=== PATIENT | female | born 1980 | race Caucasian/White ===

== ENCOUNTER 2017-05-30 20:47 | Emergency (ER) | payer MEDICAID ==
[~2017-05-30] VITALS: Ht 167.6 cm; Wt 61.2 kg
[2017-05-30 21:10] VITALS: BP 134/82
--- NOTE | 2017-05-30 21:13 | Urgent Treatment Center Report ---
History of Present Issue Date/Time Seen by Provider 05/30/172105 Visit Reason Pt arrived:Walked Presenting Problem:PT FELL WHILE ROLLER SKATING AND INJURED HER RIGHT WRIST Location if Accident: Onset of symptoms date/time:/ or onset unknown for:MEDICAL HX UNKNOWN Have you (or family members/close friends) recently traveled outside the [place]? N If Yes, where/when: Have you had exposure to infectious disease within the past month? TB? Other? Specify: Patient state that she was roller skating at a birthday green party earlier tonight when she lost her balance and fell landing on her right wirst. Complains of pain and swelling in the bend of her wrist with large "knot" States that she came in to get checked because when she first fell wrist looked odd ALLERGIES Coded Allergies: No Known Allergies (05/30/17) Home Medications Active Scripts HYDROCODONE/ACETAMINOPHEN (Lortab 5-325 MG Tablet) 1 TAB PO Q6HP PRN pain #10 TAB Prov: 03/12/14 Minocycline Hcl (Minocycline 100MG. Capsule) 100 MG PO BID #20 CAP Prov: 08/23/16 HYDROCODONE/ACETAMINOPHEN ([place] 5-325 Tablet) 1 TAB PO Q6HP PRN pain #12 TAB Prov: 08/23/16 Ondansetron (Zofran 4MG Odt) 4 MG PO Q6HP PRN NAUSEA AND VOMITING #20 ODT Prov: 02/28/17 Reported Medications No Home Medications (NO HOME MEDICATIONS) 1 EACH XX ONCE History Medical History General CAD? No Angina: No GA: No Hypertension? No Hyperlipidemia? No CHF? No DVT? No PE? No COPD? No Asthma? No Anemia? No GERD? No Gastric ulcers? No GI Bleed? No Hernia? No Thyroid Problems? No Hypothyroidism? No CVA? No Seizures? No Diabetes? No Renal Insuffiency? No UTI? No Stones? No BPH? No GB Disease: No Nephritic Syndrome? No Asplenia? No Hepatitis? No Sickle Cell Disease? No Arthritis? No Migraines? No Cataracts? No Glaucoma? No MRSA? No HIV? No TB? No Anxiety? No Depression? No Cancer? No More? No Immunization HX DT/Tetanus NOT SURE Flu NEVER Pneumonia NEVER Surgical Hx Previous Surgery?Y TONSILS & ADENOIDS I & D OF BREAST LEEP NASAL SEPTOPLASTY UTERINE ABLATION Tubal Ligation Family History Family HX Diabetes Yes CAD Yes Hypertension No Hyperlipidemia No Cancer No TB No Social History Smoking Hx Smoker: Current Every Day Smoker Tobacco: Yes Type Cigarettes Packs/day 1 1/2 - 2 Packs Alcohol Alcohol: No Review of Systems All Other Systems Reviewed and Negative Comment Pain and swelling in right wrist after falling earlier while roller skating and landing on her right wrist Physical Exam Vital Signs Vital Signs Date Time Temp Pulse Resp B/P Pulse O2 O2 Flow FiO2 Ox Delivery Rate 05/30 2110 97.8 70 18 134/82 97 05/30 2058 97.8 70 18 134/82 97 General Appearance normal appearance, WD/WN Respiratory Status Yes: trachea midline, chest symmetrical, non tender chest. No: respiratory distress. Cardiovascular normal exam, regular rate/rhythm, no peripheral edema, no gallop Extremities swelling, Pain, swelling and tenderness noted in snuff box area, good pulses, good cap refill no bruising noted at this time, able to move fingers Neurologic alert, normal exam, oriented x 3 Medical Decision Making LABS/Meds/Orders Pt receiving controlled substance in ED? No Results/Orders Orders Procedure Date/time Status [facility] STABILIZE JOINT/AREA 05/30 2113 Active WRIST-3 VIEWS-RT 05/30 2050 Active XRAY/CT/US XRAY/CT/US XRAY wrist XR interpretation by reviewed by me Xray Results non displaced fracture/tenderness over snuff box Comment discussed with Dr Nobles Departure Departure Time of Disposition 2108 Disposition DC Home or Self Care(routine) Clinical Impression Primary Impression: Wrist injury Qualifiers: Encounter type: initial encounter Laterality: right Qualified Code: S69.91XA - Unspecified injury of right wrist, hand and finger(s), initial encounter Condition STABLE Referrals Jazmyn FERRELL,Shabbir MEJIA MD, JUSTO RAM Patient Instructions DI for Wrist Fracture, DI for Wrist Pain, How To Perform RICE (Rest, Ice, Compress, Elevate) Additional Instructions Rice as discussed in UTC Motrin or Tylenol as needed for pain Folow up with fami;y doctor Call Orthopedics provided for appointment and further treatment and evaluation Return if needed Discharge Counseling Counseled pt/family regarding diagnosis, test results, home care, follow up needs Prescriptions Current Visit Scripts Ibuprofen (Ibuprofen 800MG) 800 MG PO QIDP PRN pain #30 TAB at 5060
--- NOTE | 2017-05-30 21:13 | Urgent Treatment Center Report ---
History of Present Issue Date/Time Seen by Provider 05/30/172105 Visit Reason Pt arrived:Walked Presenting Problem:PT FELL WHILE ROLLER SKATING AND INJURED HER RIGHT WRIST Location if Accident: Onset of symptoms date/time:/ or onset unknown for:MEDICAL HX UNKNOWN Have you (or family members/close friends) recently traveled outside the [place]? N If Yes, where/when: Have you had exposure to infectious disease within the past month? TB? Other? Specify: Patient state that she was roller skating at a birthday [employer] party earlier tonight when she lost her balance and fell landing on her right wirst. Complains of pain and swelling in the bend of her wrist with large "knot" States that she came in to get checked because when she first fell wrist looked odd ALLERGIES Coded Allergies: No Known Allergies (05/30/17) Home Medications Active Scripts HYDROCODONE/ACETAMINOPHEN (Lortab 5-325 MG Tablet) 1 TAB PO Q6HP PRN pain #10 TAB Prov: 03/12/14 Minocycline Hcl (Minocycline 100MG. Capsule) 100 MG PO BID #20 CAP Prov: 08/23/16 HYDROCODONE/ACETAMINOPHEN ([place] 5-325 Tablet) 1 TAB PO Q6HP PRN pain #12 TAB Prov: 08/23/16 Ondansetron (Zofran 4MG Odt) 4 MG PO Q6HP PRN NAUSEA AND VOMITING #20 ODT Prov: 02/28/17 Reported Medications No Home Medications (NO HOME MEDICATIONS) 1 EACH XX ONCE History Medical History General CAD? No Angina: No CO: No Hypertension? No Hyperlipidemia? No CHF? No DVT? No PE? No COPD? No Asthma? No Anemia? No GERD? No Gastric ulcers? No GI Bleed? No Hernia? No Thyroid Problems? No Hypothyroidism? No CVA? No Seizures? No Diabetes? No Renal Insuffiency? No UTI? No Stones? No BPH? No GB Disease: No Nephritic Syndrome? No Asplenia? No Hepatitis? No Sickle Cell Disease? No Arthritis? No Migraines? No Cataracts? No Glaucoma? No MRSA? No HIV? No TB? No Anxiety? No Depression? No Cancer? No More? No Immunization HX DT/Tetanus NOT SURE Flu NEVER Pneumonia NEVER Surgical Hx Previous Surgery?Y TONSILS & ADENOIDS I & D OF BREAST LEEP NASAL SEPTOPLASTY UTERINE ABLATION Tubal Ligation Family History Family HX Diabetes Yes CAD Yes Hypertension No Hyperlipidemia No Cancer No TB No Social History Smoking Hx Smoker: Current Every Day Smoker Tobacco: Yes Type Cigarettes Packs/day 1 1/2 - 2 Packs Alcohol Alcohol: No Review of Systems All Other Systems Reviewed and Negative Comment Pain and swelling in right wrist after falling earlier while roller skating and landing on her right wrist Physical Exam Vital Signs Vital Signs Date Time Temp Pulse Resp B/P Pulse O2 O2 Flow FiO2 Ox Delivery Rate 05/30 2110 97.8 70 18 134/82 97 05/30 2058 97.8 70 18 134/82 97 General Appearance normal appearance, WD/WN Respiratory Status Yes: trachea midline, chest symmetrical, non tender chest. No: respiratory distress. Cardiovascular normal exam, regular rate/rhythm, no peripheral edema, no gallop Extremities swelling, Pain, swelling and tenderness noted in snuff box area, good pulses, good cap refill no bruising noted at this time, able to move fingers Neurologic alert, normal exam, oriented x 3 Medical Decision Making LABS/Meds/Orders Pt receiving controlled substance in ED? No Results/Orders Orders Procedure Date/time Status [facility] STABILIZE JOINT/AREA 05/30 2113 Active WRIST-3 VIEWS-RT 05/30 2050 Active XRAY/CT/US XRAY/CT/US XRAY wrist XR interpretation by reviewed by me Xray Results non displaced fracture/tenderness over snuff box Comment discussed with Dr Nobles Departure Departure Time of Disposition 2108 Disposition DC Home or Self Care(routine) Clinical Impression Primary Impression: Wrist injury Qualifiers: Encounter type: initial encounter Laterality: right Qualified Code: S69.91XA - Unspecified injury of right wrist, hand and finger(s), initial encounter Condition STABLE Referrals Jazmyn FERRELL,Shabbir MEJIA MD, JUSTO RAM Patient Instructions DI for Wrist Fracture, DI for Wrist Pain, How To Perform RICE (Rest, Ice, Compress, Elevate) Additional Instructions Rice as discussed in UTC Motrin or Tylenol as needed for pain Folow up with fami;y doctor Call Orthopedics provided for appointment and further treatment and evaluation Return if needed Discharge Counseling Counseled pt/family regarding diagnosis, test results, home care, follow up needs Prescriptions Current Visit Scripts Ibuprofen (Ibuprofen 800MG) 800 MG PO QIDP PRN pain #30 TAB at 1977
--- NOTE | 2017-05-31 05:36 | RADIOLOGY REPORT PS360 ---
WRIST-3 VIEWS-RT HISTORY: Pain following injury SKATING INJURY ORDERING PHYSICIAN: CLARICE GARCIA APRN PATIENT AGE: 36 years COMPARISON: None FINDINGS: No fracture or dislocation. No lytic or blastic change. There is normal mineralization.. The joint spaces are well-preserved. No significant degenerative/arthritic changes. No erosive changes evident.. IMPRESSION: Negative wrist
--- OUTSIDE RECORDS SUMMARY | 2017-06-10 01:33 | External Medical Summary Rpt | CCD ---
Author Author , JACK Organization JACK Address Unknown Phone [email or web address] Care Team Providers [employer] Principal Name Role Phone A Randall العلي MD [facility], A Unavailable Unavailable Randall العلي MD PSC ALFARIS MOH, ALFARIS Unavailable Unavailable MOH ALFARIS MOH, ALFARIS Unavailable Unavailable [facility] Unavailable Unavailable [facility], [facility] GEOFF[facility], SANTA Unavailable Unavailable GEOFFREY SANTA GEOFFREY, SANTA Unavailable Unavailable GEOFFREY MICHA SANTA, Unavailable Unavailable MICHA [facility], Unavailable [facility] Unavailable Unavailable [facility], [facility] Unavailable Unavailable [facility], [facility] Unavailable Unavailable [facility], [facility] Unavailable Unavailable PHYSICIANS, [facility] GABRIEL FRANCO, Unavailable Unavailable GABRIEL FRANCO DMITRIY ALBERTO, Unavailable Unavailable DMITRIY ALBERTO DMITRIY ALBERTO, Unavailable Unavailable DMITRIY ALBERTO [facility], Unavailable Unavailable [facility], Unavailable Unavailable [facility] DOMET SEKOU, DOMET SEKOU Unavailable Unavailable DUE THO, DUE THO Unavailable Unavailable [facility], [facility] Unavailable Unavailable ELLEMAN SEKOU, ELLEMAN Unavailable Unavailable SEKOU CELESTE AND, CELESTE Unavailable Unavailable AND OMAR LOVE MD, Unavailable Unavailable FABRIZIO GAMEZ MD, Unavailable Unavailable FABRIZIO SHARIF [facility], Unavailable Unavailable [facility] ASHLEY, ASHLEY Unavailable Unavailable NGUYỄN EDWARDS, Unavailable Unavailable NGUYỄN EDWARDS DEN, JANISE DEN Unavailable Unavailable FULLER JUNG, FULLER JUNG Unavailable Unavailable FULLER JUNG, FULLER JUNG Unavailable Unavailable GREFER SEKOU, GREFER Unavailable Unavailable SEKOU HAGCHERLIN MARADIAGA, Unavailable Unavailable OSIRISCHERLIN ASHWINI MIRELLA BRUCE, MIRELLA Unavailable Unavailable BRUCE [facility] Unavailable Unavailable OMMUNITY, [facility] Unavailable Unavailable INC, [facility] AL ERA, AL Unavailable Unavailable ERA REA ALENA, Unavailable Unavailable REA A[facility]NA [facility] Unavailable Unavailable [facility], [facility] CALZADA MERLY, CALZADA MERLY Unavailable Unavailable CALZADA MERLY, CALZADA MERLY Unavailable Unavailable CALZADA, NAVYA A, Unavailable Unavailable CALZADA, NAVYA A [facility], Unavailable Unavailable [facility] HOBLIDERIKEL ERA, Unavailable Unavailable HOBLITZEL ERA [facility]available [facility], [facility] KRUSLING EDW, Unavailable Unavailable KRUSLING EDW KUMLER III MARY JO, Unavailable Unavailable KUMLER III MARY JO [facility] Unavailable Unavailable [facility], [facility] Unavailable Unavailable [facility], [facility] & [facility]available Unavailable [facility] Un[facility] Un[facility] Unavailable [facility], [facility] Unavailable Unavailable COMMUNITY ACT, [facility] BRYANT, MARCELO, BRYANT, MARCELO Unavailable Unavailable [facility] JUAN DAVID, Unavailable Unavailable [facility] Unavailable Unavailable SERVICES, [facility] GRACE BUNCH, Unavailable Unavailable GRACE BUNCH [facility] Unavailable Unavailable ASSOCIAT, [facility], Unavailable Unavailable [facility], Unavailable Unavailable [facility] Unavailable Unavailable LAB [facility], [facility] LEYVA GERTRUDE, LEYVA GERTRUDE Unavailable Unavailable SHELBY JAM, SHELBY Unavailable Unavailable JAM SHELBY JAM, SHELBY Unavailable Unavailable JUDIE FALL, Unavailable Unavailable JUDIE BERKOWITZ MURRAY Unavailable Unavailable [facility] Unavailable Unavailable & ORTHO, [facility] Unavailable Unavailable & ORTHO, [facility] NEUS AVELINA, NEUS AVELINA Unavailable Unavailable NEUS AVELINA, NEUS AVELINA Unavailable Unavailable O'MANDY JARRELL, O'MANDY Unavailable Unavailable JARRELL [facility] Unavailable [facility], Unavailable Unavailable PLL[facility], [facility]available Unavailable LAB, [facility] Unavailable Unavailable LAB, [facility] FELICIA RONDON KURT, Unavailable Unavailable FELICIA RONDON KURT PUND CHR, PUND CHR Unavailable Unavailable [facility], Unavailable Unavailable [facility], Unavailable Unavailable [facility] Unavailable Unavailable OF NOT, [facility] Un[facility] Un[facility] Unavailable Unavailable [facility], [facility] Unavailable Unavailable [facility], [facility] JA GRE, JA Unavailable Unavailable GRE TRACY JAM, TRACY Unavailable Unavailable JAM SCHNITZLER MONICO, Unavailable Unavailable SCHNITZLER MONICO SCHNITZLER MONICO, Unavailable Unavailable SCHNITZLER MONICO SCIFRES, SCIFRES Unavailable Unavailable SCIFRES, SCIFRES Unavailable Unavailable [facility] Unavailable Unavailable [facility], [facility] Unavailable Unavailable MARCI, [facility] Unavailable Unavailable [facility] Unavailable Unavailable [facility] KER, EAGLE KER Unavailable Unavailable MELVIN BALJIT, MELVIN Unavailable Unavailable BALJIT [facility] Unavailable Unavailable GASTROENTEROLOGY A, [facility] # Unavailable Unavailable [id number], [facility] # [id number] [facility] # [id number], Unavailable Unavailable [facility] # [id number] [facility] # Unavailable Unavailable [id number], [facility] # [id number] AMARJIT MALAGON Unavailable Unavailable YUNIEL [facility] Unavailable Unavailable OF [place], [facility] Unavailable Unavailable NICKOLAS LARA, Unavailable Unavailable NICKOLAS LARA ANTHONY, Unavailable Unavailable MARIELENA QUINTEROS Purpose Continuity of Care Document - 03-13-2009 through 2016 Problems Code Diagnosis DOS Provider Status [id number] HORDEOLUM 04-16-2017 SCIFRES EXTERNUM RIGHT LOWER EYELID K529 NONINFECTIV 02-28-2017 [facility] ITIS & COLITIS UNS K029 DENTAL 08-23-2016 [facility] UNSPECIFIED INC K044 ACUTE 08-23-2016 [facility], PERIODONTIT PLLC IS OF PULPAL ORIGIN K0500 ACUTE 08-23-2016 [facility] PLAQUE [facility] INDUCED Z720 TOBACCO USE 08-23-2016 [facility] R102 PELVIC AND 06-05-[address] [facility] PERINEAL PHYSICIANS PAIN GROUP K5090 CROHNS 06-04-2016 [facility] GA[facility] WITHOUT OLOGY A COMPLICATIO NS O36904 CROHNS 06-04-2016 ST DISEASE UNS NICK MED CTR SAS PROGRAMMER W/UNSPECIFI ST ED COMPLICATIO NS R197 DIARRHEA 06-04-2016 [facility] UNSPECIFIED GASTROENTER OLOGY A R634 ABNORMAL 06-04-2016 [facility] WEIGHT LOSS GASTRO[facility] OLOGY A S24871 REGULAR 06-03-2016 [facility] MERLY ASTIGMATISM BILATERAL K5289 OTH SPEC 05-18-2016 [facility] NONINFECTIV GASTROENTER E OLOGY A GASTROENTER ITIS & COLITIS R1084 GENERALIZED 05-18-2016 ANESTHESIA ABDOMINAL GROUP PAIN PRACTICE Z008 ENCOUNTER 05-18-2016 RADIOLOGY FOR OTHER ASSOCIATES GENERAL OF [facility] EXAMINATION R1030 LOWER 05-17-2016 [facility] ABDOMINAL GASTROENTER PAIN OLOGY A UNSPECIFIED R12 HEARTBURN 05-17-2016 [facility] OLOGY A N771 VAGINITIS 05-14-2016 [facility] VULVIT & N EMERGENCY VULVOVAGINI PHYSI T IN DZ CLASS ELSW R1031 RIGHT LOWER 05-14-2016 [place] PAIN ASSOCIAT R109 UNSPECIFIED 05-14-2016 [place] ABDOMINAL [facility] PAIN ASSOCIAT R112 NAUSEA WITH 05-14-2016 [place] VOMITING [facility] UNSPECIFIED ASSOCIAT Z897TWA COMP 05-14-2016 [facility] SURGICAL & N EMERGENCY MEDICAL PHYSI CARE UNS INITIAL ENCNTR L0291 CUTANEOUS 08-06-2015 [facility] ABSCESS [facility] UNSPECIFIED HOLDINGS M81647 ENCOUNTER 07-30-2015 [facility] TAX SERVICES SPECIALIST [facility] GENERAL RTN W/O ABNORMAL FIND 72204 GENERALIZED 03-20-2015 [facility] V790 SCREENING 03-20-2015 [facility] FOR PRIMARY DEPRESSION CARE CENTER 50194 CLOS 03-19-2015 [facility] FRACTURE H ORTHOPAE MID/PROXIMA L PHALANX/PHA LANG HAND 7295 PAIN IN 03-08-2015 [facility] SOFT N EMERGENCY TISSUES OF PHYS LIMB 50192 PAIN IN 02-22-2015 [facility] JOINT, HAND H ORTHOPAE V4589 OTHER 02-22-2015 ST POSTSURGICA NICK L STATUS MED CTR SAS PROGRAMMER OTHER ST V571 OTHER 02-22-2015 ST PHYSICAL NICK THERAPY MED CTR SAS PROGRAMMER ST 6929 CONTACT 02-13-2015 [facility] DERMATITIS& PRIMARY OTHER CARE CENTER ECZEMA DUE UNSPEC CAUSE V851 BODY MASS 02-13-2015 [facility] CO INDEX PRIMARY [facility] 19-24 ADULT 27600 PAIN IN 02-11-2015 RADIOLOGY JOINT, ASSOCIATES ANKLE AND OF [facility] FOOT 77569 CLOSED 02-11-2015 [facility] FRACTURE [facility]ERGENCY UNSPEC PHYSICIANS PHALANX/PHA LANGES HAND 28483 UNSPECIFIED 02-11-2015 [facility] SITE OF EMERGENCY ANKLE PHYSICIANS SPRAIN AND STRAIN 9599 INJURY 02-11-2015 RADIOLOGY OTHER AND ASSOCIATES UNSPECIFIED OF [facility] UNSPECIFIED SITE 77892 LUMP OR 10-09-[address] [facility] MASS IN PHYSICIANS [place] GROUP 25032 OTHER 10-09-2014 [facility] SPECIFIED [facility] DISORDERS INC OF [place] 87420 OTHER 10-09-2014 [facility] RADIOLOGICA L EXAM [place] 67987 REGULAR 03-21-2014 [facility] MERLY ASTIGMATISM 6201 CORPUS 03-16-2014 [facility] LUTEUM CYST OR HEMATOMA 6259 UNSPEC 03-16-2014 [facility] SYMPTOM ASSOC W/FEMALE GENITAL ORGANS 03300 ABDOMINAL 03-16-2014 [facility] PAIN, LEFT LOWER QUADRANT 6202 OTHER AND 03-12-2014 [place] UNSPECIFIED [facility]ICAL OVARIAN IMAGING ASS CYST 7242 LUMBAGO 03-12-2014 [facility] MOH 7245 UNSPECIFIED 03-12-2014 [facility] BACKACHE [facility] 7880 RENAL COLIC 03-12-2014 [facility] 20760 HEAD 03-12-2014 [place] INJURY, MEDICAL UNSPECIFIED IMAGING ASS 4618 OTHER ACUTE 08-08-2013 SHELBY ARTEAGA SINUSITIS 7840 HEADACHE 08-08-2013 [facility] ARTEAGA 2359 NEOPLASM 07-18-2013 [facility] UNCERTAIN SURGERY BEHAVIOR ASSOC OTH&UNSPEC RESP ORGN 4710 POLYP OF 07-18-2013 [facility] NASAL SURGERY CAVITY ASSOC 4719 UNSPECIFIED 07-18-2013 SCHNITZLER NASAL MONICO POLYP 7291 UNSPECIFIED 07-11-2013 [facility] MYALGIA SURGERY AND ASSOC MYOSITIS 4739 UNSPECIFIED 07-04-2013 SINUSITIS NICK COVARRUBIAS 71789 LOSS OF 06-28-2013 [facility] 87653 HORDEOLUM 06-23-2013 [facility] MERLY EXTERNUM 5990 URINARY 06-16-2013 [facility] TRACT INFECTION SITE NOT SPECIFIED 82969 HEMATURIA 06-16-2013 [facility] UNSPECIFIED 1330 SCABIES 04-24-2013 FULLER JUNG 6989 UNSPECIFIED 04-24-2013 FULLER JUNG PRURITIC DISORDER 62368 EFFUSION OF 01-11-2013 [facility] ANKLE AND PROSTHETICS FOOT JOINT & ORTHO 40257 OTHER ANKLE 01-11-2013 [facility] SPRAIN [facility] PROSTHET[facility] STRAIN & ORTHO 57754 CLOSED 01-06-2013 SHELBY ARTEAGA FRACTURE OF UNSPECIFIED PART OF TIBIA 824.8 824.8 FX 01-06-2013 Patty ANKLE [facility] NOS-CLOSED Hospital 8242 CLOSED 01-06-2013 DMITRIY FRACTURE OF ALBERTO LATERAL MALLEOLUS 8248 UNSPECIFIED 01-06-2013 GUZ[facility] CLOSED EMERGENCY FRACTURE OF SERVICES ANKLE 9597 INJURY 01-06-2013 DMITRIY OTHER&UNSPE ALBERTO CIFIED KNEE LEG ANKLE&FOOT E849.8 E849.8 01-06-2013 Patty [address] IN [facility] E880.9 E880.9 FALL 01-06-2013 Patty ON [facility] STAIR/STEP Hospital [facility] V7231 ROUTINE 05-17-2012 [facility] AL EXAMINATION 3671 MYOPIA 04-29-2011 [facility] 6262 EXCESSIVE 03-09-2011 [facility] [place] N V242 ROUTINE 11-20-2010 PATHOLOGY & CYTOLOGY FOLLOW-UP LAB V252 STERILIZATI 10-11-2010 [facility] [place] V3000 SINGLE 10-11-2010 A C [facility] W/O 650 NORMAL 10-10-2010 [facility] DELIV[facility] CLIN[facility] OF [place] 14993 OLIGOHYDRAM 10-10-2010 [facility] DELIVER[facility] CLINIC OF [place] 03992 OTH&UNS CRD 10-10-2010 [facility] W/O COMPRS CLINIC OF COMP L&D [place] DELIV V270 OUTCOME OF 10-10-2010 [facility] DELIVERY HEALTH SINGLE CLINIC OF LIVEBORN [place] 80734 OLIGOHYDRAM 10-09-2010 [facility] ANTEPARTUM CLINIC OF [place] V221 SUPERVISION 10-02-2010 [facility] OF OTHER HEALTH NORMAL CLINIC OF [place] 54781 MATERNAL RX 2010 [facility] COM[facility] PG CLINIC OF CB/PP UNS [place] EOC 6110 INFLAMMATOR 08-04-2010 COMBINED [place] [address] PLACENTA 07-23-2010 [facility] PREVIA HEALTH WITHOUT CLINIC OF HEMORRHAGE [place] ANTEPARTUM 43212 POOR 07-23-2010 [facility] GROWTH MGMT HEALTH MOTH CLINIC OF LUDMILA WALKER COND/COMP V653 DIETARY 06-19-2010 [facility] E AND DEPARTME COUNSELING V6540 COUNSELING 06-19-2010 [facility] HEALTH DEPARTME V283 ENCOUNTER 06-05-2010 W[facility]EN'S ROUTINE HEALTH SCREEN CLINIC OF LEYDI Salmon ULTRASONIC V7242 03-26-2010 [facility] EXAMINATION [facility] OR TEST S POSITIVE RESULT 57029 OTHER 03-24-2010 [facility]EN'[facility] SPECIFED HEALTH COMPLICATIO CLINIC OF Luis Antonio MCCOY ANTEPARTUM PLLC 11504 PAP SMER 03-21-2010 PATHOLOGY & CERV CYTOLOGY W/ATYPICAL LAB SQUAMOUS CELLS UNDET 18072 CERV HIGH 03-21-2010 PATHOLOGY & RISK HUMAN CYTOLOGY PAPILLOMAVI LAB LEATHA DNA TEST POS V745 SCREENING 03-21-2010 PATHOLOGY & EXAMINATION CYTOLOGY FOR LAB VENEREAL DISEASE 21062 OTHER 03-06-2010 ST POSTOPERATI NICK VE FT MARCI INFECTION NEC V6709 FOLLOW-UP 03-06-2010 ST EXAMINATION NICK FOLLOWING FT [facility] OTHER SURGERY 16917 MASTODYNIA 01-15-2010 [facility] 6100 SOLITARY 10-03-2009 [facility] RADIOLOGY [place] ASSOCIAT 62057 OTHER SIGN 10-03-2009 [facility] AND SYMPTOM PRIMARY IN [facility]ENTER[facility] Allergies, Adverse Reactions, Alerts Type Allergy to substance Adverse Reaction to Substance Substance Reaction Severity NO KNOWN ALLERGIES Unknown Unknown Medications Na ND Rx Da Fi Fi Am Da Di Ph RX Ph St me C No te ll ll ou ys ag ar # ys at rm s nt no ma ic us Or Da si cy ia de te s n re d CY 69 08 09 30 10 00 DE Ac CL 09 -1 -2 .0 00 AN ti OB 70 8- 2- 00 06 S ve EN 84 20 20 51 PH ZA 61 17 17 84 AR DE 5 05 MA IN CY E 10 MG TA BL ET DI 61 08 09 30 15 00 DE Ac CL 44 -1 -2 .0 00 AN ti OF 20 8- 2- 00 06 S ve EN 10 20 20 51 PH AC 26 17 17 84 AR 0 04 MA SO CY D DR 50 MG TA B DO 68 08 09 20 10 00 DE Ac XY 18 -1 -2 .0 00 AN ti CY 00 8- 2- 00 06 S ve CL 65 20 20 51 PH IN 20 17 17 91 AR E 8 06 MA MO CY NO 10 0 MG CA P HY 00 01 02 [address] 60 -0 -0 .0 00 L- ti OC 33 4- 3- 00 02 MA ve OD 89 20 20 25 RT ON 02 17 17 26 -A 1 09 PH CE AR TA MA MA CY NO PH #1 EN 56 9 5- 32 5 HY 53 12 01 [address] 74 -2 -2 .0 00 S ti OC 60 5- 7- 00 01 PH ve OD 10 20 20 27 AR ON 90 16 17 93 MA -A 1 76 CY CE TA #0 MA 23 NO 32 PH EN 5- 32 5 MA 00 12 01 20 10 00 CV Ac NO 09 -2 -2 .0 00 S ti CY 33 5- 7- 00 01 PH ve CL 16 20 20 27 AR IN 75 16 17 93 MA E 3 77 CY 10 0 #0 MG 23 32 CA PS UL E HY 10 08 08 5 30 30 DE [address] 70 -1 -1 .0 AN 14 US ti OX 20 7- 7- 00 S 60 ve YZ 01 [address] IN 25 11 11 AR EV E 0 MA EN HC CY E L 50 IN C MG TA BL ET CI 65 06 08 10 15 30 WA 31 NE Ac TA 16 -0 -0 .0 LG 90 US ti LO 20 3- 9- 00 RE 44 ve DE 05 [address] AM 41 11 11 S EV 0 #7 EN HB 34 E R 6 40 # 73 MG 46 TA BL ET SE 16 02 08 10 30 30 DE 64 NE Ac RT 71 -2 -0 .0 AN 07 US ti RA 40 5- 9- 00 S 39 ve LI 61 [address] NE 30 11 11 AR EV 5 MA EN HC CY E L 10 IN 0 C MG TA BL ET DI 00 07 07 0 20 5 RE 69 NE Ac CY 59 -1 -1 .0 YN 85 US ti CL 10 8- 8- 00 OL 74 ve OM [address] IN 40 11 11 EV E 1 PH EN 10 AR E MA MG CY CA PS UL E DI 00 06 07 1 45 30 WA 31 NE Ac AZ 37 -0 -0 .0 LG 90 US ti EP 80 3- 1- 00 RE 44 ve AM 34 [address] 5 50 11 11 S EV 5 #7 EN MG 34 E 6 TA # BL 73 ET 46 00 06 06 0 20 5 DE 40 CL Ac 40 -1 -1 .0 AN 63 AR ti 60 3- 3- 00 S 71 KE ve 35 20 20 PH 9 70 11 11 AR DE 5 MA RE CY K J IN C CI 65 06 06 10 15 30 WA 31 NE Ac TA 16 -0 -0 .0 LG 90 US ti LO 20 3- 3- 00 RE 44 ve DE 05 [address] AM 41 11 11 S EV 0 #7 EN HB 34 E R 6 40 # 73 MG 46 TA BL ET DI 00 06 06 1 45 30 WA 31 NE Ac AZ 37 -0 -0 .0 LG 90 US ti EP 80 3- 3- 00 RE 44 ve AM 34 [address] 5 50 11 11 S EV 5 #7 EN MG 34 E 6 TA # BL 73 ET 46 DI 00 06 06 0 12 30 CL 23 CL Ac CY 37 -0 -0 0. IN 96 AR ti CL 81 2- 2- 00 IC 18 KE ve OM 62 20 20 0 IN 00 11 11 PH DE E 1 AR RE 20 MA K CY J MG LL TA C BL ET IB 53 05 05 0 40 10 DE 64 CL Ac UP 74 -2 -2 .0 AN 11 AR ti RO 60 7- 7- 00 S 46 KE ve FE 46 20 20 PH 9 N 40 11 11 AR DE 40 1 MA RE 0 CY K MG J IN TA C BL ET SE 16 02 05 10 30 30 DE 64 NE Ac RT 71 -2 -2 .0 AN 07 US ti RA 40 5- 6- 00 S 39 ve LI 61 [address] NE 30 11 11 AR EV 5 MA EN HC CY E L 10 IN 0 C MG TA BL ET NA 53 03 03 1 60 30 CL 23 CL Ac DE 74 -2 -2 .0 IN 52 AR ti OX 60 4- 4- 00 IC 49 KE ve EN 19 20 20 00 11 11 PH DE 50 5 AR RE 0 MA K MG CY J TA LL BL C ET SE 16 02 02 10 30 30 DE 64 NE Ac RT 71 -2 -2 .0 AN 07 US ti RA 40 5- 5- 00 S 39 ve LI 61 [address] NE 30 11 11 AR EV 5 MA EN HC CY E L 10 IN 0 C MG TA BL ET 00 02 02 0 30 8 CL 23 CL Ac 59 -2 -2 .0 IN 34 AR ti 10 4- 4- 00 IC 08 KE ve 38 20 20 50 11 11 PH DE 5 AR RE MA K CY J LL C 00 02 02 30 5 RE 69 CL Ac 59 -1 -1 .0 YN 21 AR ti 10 6- 6- 00 OL 86 KE ve 38 20 20 DS 50 11 11 DE 5 PH RE AR K MA J CY OX 00 02 02 0 30 2 WA 22 CL Ac YC 40 -1 -1 .0 L- 19 AR ti OD 60 3- 3- 00 MA 45 KE ve ON 51 20 20 RT 1 E- 20 11 11 DE AC 1 PH RE ET AR K AM MA J IN CY OP # HE N 10 5- 05 32 91 5 IB 68 02 02 1 40 8 WA 71 CL Ac UP 64 -1 -1 .0 L- 06 AR ti RO 50 3- 3- 00 MA 70 KE ve FE 22 20 20 RT 1 N 09 11 11 DE 40 0 PH RE 0 AR K MG MA J CY TA # BL ET 10 05 91 00 02 02 20 5 RE 69 CL Ac 59 -0 -0 .0 YN 16 AR ti 10 3- 3- 00 OL 06 KE ve 38 20 20 DS 50 11 11 DE 5 PH RE AR K MA J CY HARDY 00 12 12 20 10 RE 68 CL Ac LF 60 -0 -0 .0 YN 91 AR ti AM 35 6- 6- 00 OL 79 KE ve ET 78 20 20 DS HO 12 10 10 DE XA 8 PH RE ZO AR K LE MA J -T CY MP DS TA BL ET 00 12 12 30 5 RE 68 CL Ac 59 -0 -0 .0 YN 91 AR ti 10 6- 6- 00 OL 80 KE ve 34 20 20 DS 90 10 10 DE 5 PH RE AR K MA J CY BU 00 09 09 40 8 RE 68 CL Ac TA 14 -1 -1 .0 YN 57 AR ti LB 31 6- 7- 00 OL 25 KE ve -A 78 20 20 DS CE 70 10 10 DE TA 1 PH RE MA AR K N- MA J CA CY FF 50 -3 25 -4 0 BU 00 09 09 40 10 RE 68 HASSAN Ac TA 14 -0 -0 .0 YN 53 RP ti LB 31 9- 9- 00 OL 39 EL ve -A 78 20 20 DS CE 70 10 10 GE TA 1 PH RA MA AR LD N- MA R CA CY FF 50 -3 25 -4 0 DE 65 08 08 30 30 RE 68 CL Ac EN 16 -3 -3 .0 YN 49 AR ti AT 20 0- 1- 00 OL 36 KE ve AL 66 20 20 DS [address] 0 PH RE US AR K MA J TA CY BL ET BU 00 08 08 40 7 RE 68 CL Ac TA 14 -3 -3 .0 YN 49 AR ti LB 31 0- 0- 00 OL 02 KE ve -A 78 20 20 DS CE 70 10 10 DE TA 1 PH RE MA AR K N- MA J CA CY FF 50 -3 25 -4 0 00 05 08 30 30 RE 68 NE Ac 78 -0 -0 .0 YN 07 US ti 11 4- 9- 00 OL 10 ve [address] 30 10 10 EV 5 PH EN AR E MA CY 00 05 06 30 30 RE 68 NE Ac 78 -0 -0 .0 YN 07 US ti 11 4- 8- 00 OL 10 ve [address] 30 10 10 EV 5 PH EN AR E MA CY 00 05 05 0 20 3 WA 30 MU Ac 59 -1 -1 .0 LG 13 RL ti 10 9- 9- 00 RE 82 EY ve 74 20 20 EN 8 90 10 10 S HE 5 #7 ID 34 I 6 C # 73 46 HARDY 53 05 05 0 14 7 WA 30 MU Ac LF 74 -1 -1 .0 LG 13 RL ti AM 60 9- 9- 00 RE 82 EY ve ET 27 20 20 EN 9 HO 20 10 10 S HE XA 5 #7 ID ZO 34 I LE 6 C -T # MP 73 46 DS TA BL ET 00 05 05 0 15 2 WA 30 EV Ac 59 -1 -1 .0 LG 12 AN ti 10 7- 7- 00 RE 92 S ve 34 20 20 EN 5 JA 90 10 10 S ME 5 #7 S 34 L 6 # 73 46 HARDY 53 05 05 0 20 10 WA 30 MU Ac LF 74 -1 -1 .0 LG 11 RL ti AM 60 2- 3- 00 RE 17 EY ve ET 27 20 20 EN 1 HO 20 10 10 S HE XA 5 #7 ID ZO 34 I LE 6 C -T # MP 73 46 DS TA BL ET 00 05 05 0 30 5 WA 30 MU Ac 59 -1 -1 .0 LG 11 RL ti 10 3- 3- 00 RE 17 EY ve 74 20 20 EN 0 90 10 10 S HE 5 #7 ID 34 I 6 C # 73 46 00 05 05 30 30 RE 68 NE Ac 78 -0 -1 .0 YN 07 US ti 11 4- 0- 00 OL 10 ve [address] 30 10 10 EV 5 PH EN AR E MA CY 00 04 04 0 20 2 WA 30 GA Ac 59 -2 -2 .0 LG 03 UT ti 10 7 7- 00 RE 64 RA ve 74 20 20 EN 9 UD 90 10 10 S 5 #7 RI 34 CH 6 AR # D 73 46 00 02 03 30 30 RE 67 NE Ac 78 -0 -0 .0 YN 68 US ti 11 2- 2- 00 OL 05 ve [address] 30 10 10 EV 5 PH EN AR E MA CY DE 37 02 02 00 56 28 RE 67 NE Ac IL 00 -0 -1 .0 YN 68 US ti OS 00 2- OL 07 ve EC [address] 50 10 10 EV OT 3 PH EN C AR E 20 MA .6 CY MG TA BL ET 00 02 02 00 30 30 RE 67 NE Ac 78 -0 -1 .0 YN 68 US ti 11 2- - OL 05 ve [address] 30 10 10 EV 5 PH EN AR E MA CY DE 00 01 01 00 10 2 WA 29 HE Ac OM 78 -1 -2 .0 LG 56 RF ti ET 11 RE 40 EL ve HASSAN 83 20 20 EN 6 ZI 00 10 10 # RO NE 1 B 07 F 25 34 6 MG TA BL ET DE 37 01 01 00 14 14 WA 29 HE Ac IL 00 -1 -2 .0 LG 56 RF ti OS 00 RE 40 EL ve EC 45 20 20 EN 5 50 10 10 # RO OT 2 B C 07 F 20 34 .6 6 MG TA BL ET Vital Signs 01-06-2013 10:53 Name Value Interpretat Reference Comment ion Range Body 97.6 [degF] Temperature BP 78 mm[Hg] Diastolic BP Systolic 113 mm[Hg] Heart 78 /min Rate/Pulse O2% 98 % Respiratory 16 /min Rate 01-06-2013 10:46 Name Value Interpretat Reference Comment ion Range BP 78 mm[Hg] Diastolic BP Systolic 113 mm[Hg] Heart 78 /min Rate/Pulse O2% 98 % Respiratory 16 /min Rate Procedures Procedure DOS Code Location Performer Comment COLLECTIO [address] N VENOUS 6 [facility] VENIPUNCT [facility] URE [address] HYDROXY 6 [facility] FRACTIONS [facility]MER [facility] PROGRAMMER ST IF PERFORMED COMPREHEN [address] SIVE 6 [facility] PANEL [facility] PROGRAMMER [facility]GRAMMER [facility] BLOOD [address] COUNT 6 [facility] COMPLETE [facility] AUTO&AUTO SAS PROGRAMMER [facility] SAS PROGRAMMER ST DIFRNTL WBC HEPATITIS [address] B CORE 6 [facility] ANTIBODY [facility] HBCAB SAS PROGRAMMER [facility] SAS PROGRAMMER [facility] TOTAL OPHTH [address]24 [facility] MEDICAL 6 XM&EVAL COMPRHNSV ESTAB PT 1/> [facility] [address] [facility] DISCHARGE 6 DALE EDW DAY MANAGEMEN PHYSICIAN T 30 S MIN/< [place] [address] [facility] PY 6 GRE W/BIOPSY GASTROENT SINGLE/MU EROLOGY A LTIPLE ANE 75423 ANESTHESI [facility] 6 A GROUP INTESTINE PRACTICE ENDOSCOPY DISTAL DUODENUM RADIOLOGI 50872 RADIOLOGY TRACY C EXAM 6 JAM CHEST 2 ASSOCIATE VIEWS S OF NOTH FRONTAL&L ATERAL SBSQ [address] ED CARE/DAY 25 PHYSICIAN MINUTES S SBSQ 47439 [facility] 6 YUNIEL CARE/DAY GASTROENT 25 EROLOGY A MINUTES INITIAL 72211 [facility] INPATIENT 6 ALENA CONSULT GASTROENT NEW/ESTAB EROLOGY A PT 80 MIN INITIAL [id number] EDW CARE/DAY 50 PHYSICIAN MINUTES S FINAL G9551 [facility] REPR ABD 6 ERA IMAG STS RADIOLOGY W/O ASSOCIAT INCIDNT FND LES NTD: FINAL [id number] [facility] REPORTS 6 ERA W/DOC RADIOLOGY 1/MORE ASSOCIAT DOSE REDUCTION TECH RADEX ABD 75635 [facility] COMPL 6 ERA AQT ABD RADIOLOGY W/S/E/D ASSOCIAT VIEWS [address] [place] [address] [facility] AL ABDOMEN & 6 ERA PELVIS RADIOLOGY W/CONTRAS ASSOCIAT T MATERIAL CULTURE 32988 [facility] BACTERIAL 5 [place] [employer] SOURCE ANAEROBIC ISO&ID CUL BACT 92104 [facility] ANAEROBIC 5 [facility] [facility] [employer] METHS DEFINITIV E EA ISOL CYTP C/V 52912 [facility], [facility] ER JR KURT LYR PREPJ SCR MNL RESCR PHYS RADEX 35360 [facility] DUE THO FINGR 5 LTH MINIMUM 2 ORTHOPAE VIEWS RADEX 03961 [facility] HAND 5 EIDER ASHWINI MINIMUM 3 RADIOLOGY VIEWS ASSOCIAT RADEX 27678 [facility] DUE THO FINGR 5 LTH MINIMUM 2 ORTHOPAE VIEWS RADEX 81203 [facility] HOBLITZEL FINGR 5 LTH ERA MINIMUM 2 ORTHOPAE VIEWS FINGER L39[address] ST [address] ORTHOTIC 5 NICK ROMERO W/O MED CTR MED CTR JOINTS SAS PROGRAMMER ST SAS PROGRAMMER ST CUSTOM FABRICATE D RADEX 45827 [facility] DUE THO FINGR 5 LTH MINIMUM 2 ORTHOPAE VIEWS PRQ SKEL [address] FIXJ 5 NICK ROMERO PHLNGL MED CTR MED CTR SHFT FX SAS PROGRAMMER ST SAS PROGRAMMER ST PROX/MIDD LE PX/F/T INJ J0702 TRACY CO GORE DEN BETAMETHA 5 PRIMARY SONE CARE ACETATE & CENTER PHOSPHATE 3 MG THERAPEUT 62822 TRACY CO GORE DEN IC 5 PRIMARY PROPHYLAC CARE TIC/DX CENTER INJECTION SUBQ/IM RADEX 06557 [facility] GREFER FINGR 5 LTH SEKOU MINIMUM 2 ORTHOPAE VIEWS RADEX 44881 RADIOLOGY GABRIEL ANKLE 5 FRANCO COMPLETE ASSOCIATE MINIMUM 3 S OF NOTH VIEWS RADEX 07734 RADIOLOGY GABRIEL FINGR 5 FRANCO MINIMUM 2 ASSOCIATE VIEWS S OF NOTH US BREAST 97436 [facility] REAL 5 MEDICAL ALBERTO TIME IMAGING WITH ASS IMAGE COMPLETE OPHTH 11106 [facility] MEDICAL 4 XM&EVAL COMPRHNSV ESTAB PT 1/> [place] [address] ARINA SANTA TRANSVAGI [address] [place] [address] [place] [facility] ABDOMEN & 4 MEDICAL ALBERTO PELVIS IMAGING W/O ASS CONTRAST MATERIAL RADEX 82548 [facility] SPINE 4 MEDICAL MEDICAL LUMBOSACR IMAGING IMAGING AL ASS [place] [address] [place] [address] [place] [facility] HEAD/BRAI 4 MEDICAL ALBERTO N W/O IMAGING CONTRAST ASS MATERIAL NASAL/SIN 64354 HEAD & DOMET SEKOU US NDSC 3 NECK SURG W/BX SURGERY ASSOC POLYPECT/ DBRDMT SPX ANESTHESI 29994 SCHNITZLE SCHNITZLE A NOSE & 3 R MONICO R [place] [address] EDWARDS EDWARDS SURG 3 ALIVIA ALIVIA PATHOLOGY GROSS&[place] [address] MAXILLOFA 3 NICK NICK CIAL W/O FT FT & MARCI COVARRUBIAS W/CONTRAS T MATERIAL LOCM Q9967 ST ST 300-399 3 NICK NICK MG/ML FT FT IODINE MARCI COVARRUBIAS CONCENTRA TION PER ML BLOOD 18210 [facility] COUNT 3 DIAGNOSTI DIAGNOSTI COMPLETE CS CS AUTO&AUTO DIFRNTL WBC BASIC 24502 [facility] METABOLIC 3 DIAGNOSTI DIAGNOSTI [place] [address] [facility] THYROID 3 DIAGNOSTI DIAGNOSTI STIMULATI CS CS NG HORMONE TSH URNLS DIP 40569 ARINA SANTA 3 GEOFFREY GEOFFREY STICK/TAB LET RGNT NON-AUTO W/O MICRSCP INJECTION J1040 NEUS AVELINA NEUS AVELINA 3 METHYLPRE DNISOLONE ACETATE 80 MG THERAPEUT 20843 NEUS AVELINA NEUS AVELINA IC 3 PROPHYLAC TIC/DX INJECTION SUBQ/IM ANKLE L4350 NATIONAL NATIONAL CONTROL 3 PROSTHETI PROSTHETI ORTHOSIS CS & CS & STIRRUP ORTHO ORTHO STYL RIGID PREFAB CRTCHS E0114 [employer] UNDARM 3 OTH THAN WOOD PAIR PAD TIP&HNDGR IP RADEX 43895 PATTY BRAMBILA ANKLE 3 [facility] COMPLETE INC INC MINIMUM 3 VIEWS CLTX DSTL 10386 GUZMAN O'MANDY FIBULAR 3 EMERGENCY JARRELL FX LAT SERVICES MALLS W/O MANJ URNLS DIP 52352 ARINA SANTA 2 GEOFFREY GEOFFREY STICK/TAB LET RGNT NON-AUTO W/O MICRSCP NONEMERG A0120 LKLP LICKING TRNSPRT: 1 [facility] COMMUNITY MTN ACT AREA/OTH SYS OPHTH 51850 TEX CALZADA [facility] 1 VISION XM&EVAL COMPRHNSV ESTAB PT 1/> NONEMERG A0120 LKLP BRYANT TRNSPRT: 1 [facility] OMMUNITY MTN AREA/OTH SYS NONEMERG A0120 LKLP BRYANT TRNSPRT: 1 [facility] OMMUNITY MTN AREA/OTH SYS NONEMERG A0120 LKLP BRYANT TRNSPRT: 1 [facility] OMMUNITY MTN AREA/OTH SYS ENDOMETRI 6823 PATTY BRAMBILA AL 1 [facility] ABLATION INC INC HYSTEROSC 6812 PATTY BRAMBILA OPY 1 [place] [address] PATTY BRAMBILA INFUSION 1 [facility] THERAPY INC INC PROPHYLAX IS/DX EA HOUR THERAPEUT 47828 PATTY BRAMBILA IC 1 [facility] INJECTION INC [place] [address] CHIPPS GUZMAN SURG 1 JOSE & JUAN DAVID PATHOLOGY DUBILIER GROSS&SEKOU ROSCOPIC EXAM HYSTEROSC 71599 [facility]Y [facility] [place] ABLATION ANES 97228 [facility] HYSTEROSC 1 ANESTH BRUCE OPY&/HYST OF THE EROSALPIN BLUE GOGRAPHY W/BX BLOOD 73483 PATTY BRAMBILA COUNT 1 [facility] COMPLETE INC INC AUTO&AUTO DIFRNTL WBC GONADOTRO 15594 PATTY BRAMBILA PIN 1 [facility] CHORIONIC INC INC QUALITATI VE NONEMERG A0120 LK BRYANT TRNSPRT: 1 [facility] OMMUNITY MTN AREA/OTH SYS NONEMERG A0120 [facility] OMMUNITY MTN AREA/OTH SYS NONEMERG A0120 [facility]: 1 [facility] OMMUNITY MTN AREA/OTH SYS NONEMERG A0120 [facility] 1 [facility] OMMUNITY MTN AREA/OTH SYS NONEMERG A0120 [facility]: 1 [facility] OMMUNITY MTN AREA/OTH SYS NONEMERG A0120 [facility] 1 [facility] OMMUNITY MTN AREA/OTH SYS NONEMERG A0120 [facility]: 1 [facility] OMMUNITY MTN AREA/OTH SYS CYTP C/V 87575 PATHOLOGY PATHOLOGY AUTO THIN 1 & & LYR CYTOLOGY CYTOLOGY PREPJ SCR LAB LAB MNL RESCR PHYS NONEMERG A0120 [facility]: 1 [facility] OMMUNITY MTN AREA/OTH SYS NONEMERG A0120 [facility] TRNSPRT[facility] 1 [facility] [facility] OMMUNITY MTN AREA/OTH SYS NONEMERG A0120 [facility]: 1 [facility] OMMUNITY MTN AREA/OTH SYS [facility] 97800 A Randall العلي A DISCHARGE 1 SEVERIANO FERRELL DAY PSC MANAGEMEN T 30 MIN/< 1ST 07566 Orlando Perry HOSP/HUNG 1 SEVERIANO FERRELL [facility] PSC CENTER CARE PER DAY NML NB OT 6639 PATTY PATTY BILATERAL 1 [facility] INC INC DESTRUC/O CCLUSION FALLOPIAN TUBES ANES IPER 27346 [facility] LEYVA GERTRUDE LWR ABD 1 ANESTH W/LAPS OF THE TUBAL BLUE LIGATION/ TRANSECT LIG/TRNSX 64152 [facility] J FLP 1 [facility] TUBE [facility]IN[facility] OF ABDL/VAG [place]ISE POSTPARTU M SPX VAGINAL 87128 [facility] DELIVERY 1 [facility] ONLY CLINIC OF [place] NEURAXIAL 40369 [facility] MELVIN LABOR 1 ANESTH BALJIT ANALG/ANE OF THE S PLND BLUE VAGINAL DELIVERY OTHER 7359 PATTY BRAMBILA MANUALLY 1 [facility] ASSISTED INC INC DELIVERY DOPPLER 34272 [facility] VELOCIMET 1 [facility] RY [facility]INIC OF UMBILICAL [place] PREG 41970 [facility] UTERUS 1 [facility] REAL TIME CLINIC OF F/U [place] TRNSABDL PER FETUS 35265 [facility] BIOPHYSIC 1 [facility]IN[facility] OF PROFILE DENISE W/O NON-STRES S TESTING NONEMERG A0120 LKLP BRYANT TRNSPRT: 1 [facility] OMMUNITY MTN AREA/OTH SYS CUL BACT 72343 COMBINED COMBINED XCPT 1 PHYSICIAN PHYSICIAN URINE S LA S LA BLOOD/STO OL AEROBIC ISOL NONEMERG A0120 LKLP BRYANT TRNSPRT: 1 [facility] OMMUNITY MTN AREA/OTH SYS NONEMERG A0120 LKLP BRYANT TRNSPRT: 0 [facility] OMMUNITY MTN AREA/OTH SYS NONEMERG A0120 LKLP BRYANT TRNSPRT: 0 [facility] OMMUNITY MTN AREA/OTH SYS CUL BACT 94619 COMBINED COMBINED XCPT 0 PHYSICIAN PHYSICIAN URINE S LA S LA BLOOD/STO OL AEROBIC ISOL NONEMERG A0120 LKLP BRYANT TRNSPRT: 0 [facility] OMMUNITY MTN AREA/OTH SYS 01786 [facility] BIOPHYSIC 0 [facility] PROFILE DENISE W/O NON-STRES S TESTING US PREG 44693 [facility] UTERUS 0 [facility] REAL TIME CLINIC OF F/U DENISE TRNSABDL PER FETUS DOPPLER 11923 [facility] VELOCIMET 0 [facility] RY [facility]IN[facility] OF UMBILICAL [place] ARTERY NONEMERG A0120 LKLP BRYANT TRNSPRT: [facility] OMMUN[facility] MTN AREA/OTH SYS NONEMERG A0120 LKLP BRYANT TRNSPRT: 0 [facility] [place] [facility] OMMUNITY MTN AREA/OTH SYS MEDICAL 60623 ROMA BRANDON NUTRITION 0 [facility] ASSMT&IVN DEPARTME DEPARTME TJ INDIV EACH 15 MA NONEMERG A0120 LK BRYNAT TRNSPRT: 0 [facility] [place] OMMUNITY MTN AREA/OTH SYS NONEMERG A0120 LK BRYANT TRNSPRT: 0 [facility] [place] [facility] OMMUNITY MTN AREA/OTH SYS US PREG 10261 [facility] UTERUS 0 [facility] AFTER 1ST CLINIC OF TRIMEST [place]ISE GESTATION NONEMERG A0120 LKLP BRYANT TRNSPRT: 0 [facility] [place] OMMUNITY MTN AREA/OTH SYS NONEMERG A0120 LKLP BRYANT TRNSPRT: 0 [facility] OMMUNITY MTN AREA/OTH SYS NONEMERG A0120 LKLP BRYANT TRNSPRT: 0 [facility] OMMUNITY MTN AREA/OTH SYS NONEMERG A0120 LKLP BRYANT TRNSPRT: 0 [facility] OMMUNITY MTN AREA/OTH SYS NONEMERG A0120 LKLP BRYANT TRNSPRT: 0 [facility] MTN AREA/[place] [address] MEDTOX MEDTOX LEAD 0 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 P[place] 13887 [facility], UTERUS 0 [facility] J REAL TIME CLINIC OF W/IMAGE DCMTN NADINE WOOVAJose PLLC MUTATION 02070 MOLECULAR MOLECULAR ID 0 ENZYMATIC PATHOLOGY PATHOLOGY LAB NETW LAB NETW LIG/PRIME R XTN 1 SGM EA IADNA 68146 PATHOLOGY PATHOLOGY CHLAMYDIA 0 & & CYTOLOGY CYTOLOGY TRACHOMAT LAB LAB IS AMPLIFIED PROBE TQ IADNA 33118 PATHOLOGY PATHOLOGY NEISSERIA 0 & & CYTOLOGY CYTOLOGY GONORRHOE LAB LAB AE AMPLIFIED PROBE TQ IADNA 28780 PATHOLOGY PATHOLOGY PAPILLOMA 0 & & VIRUS CYTOLOGY CYTOLOGY HUMAN LAB LAB AMPLIFIED PROBE TQ CYTP 22697 PATHOLOGY PATHOLOGY CERVICAL/ 0 & & VAGINAL CYTOLOGY CYTOLOGY REQ LAB LAB INTERP PHYSICIAN CYTP C/V 08926 PATHOLOGY PATHOLOGY AUTO THIN 0 & & LYR CYTOLOGY CYTOLOGY PREPJ SCR LAB LAB MNL RESCR PHYS NONEMERG A0120 LKLP BRYANT TRNSPRT: 0 [facility] OMMUNITY MTN AREA/OTH SYS NONEMERG A0120 LKLP BRYANT TRNSPRT: 0 [facility] OMMUNITY MTN AREA/OTH SYS NONEMERG A0120 LKLP BRYANT TRNSPRT: 0 [facility] OMMUNITY MTN AREA/OTH SYS NONEMERG A0120 LKLP BRYANT TRNSPRT: 0 [facility] OMMUNITY MTN AREA/OTH SYS NONEMERG A0120 [facility]: 0 [facility] OMMUN[place] MT[place] [address] ST BRYANT, MARCELO SURG 0 NICK PATHOLOGY MED CTR GROSS&SEKOU ROSCOPIC EXAM MASTOTOMY 76328 [facility], 0 NICK Pereira W/EXPLORA TION/SANDY PHYSICIAN ELISA Marroquin ABSCESS DEEP EXCISION 85245 [facility], LACTIFERO 0 NICK Pereira US DUCT FISTULA PHYSICIAN Lopez TIDWELL 95630 INDIO FARAH INTEG 0 NT N, EXTREMITI ANESTHESI MARIELENA ES ANT OLOGIST TRUNK & PERINEUM NOS COLLECTIO 94905 TRACY CO YOUNG, N VENOUS 0 PRIMARY [facility] VENIPUNCT CENTERINC URE US BREAST 47169 YOLI KENT REAL 0 CO CO TIME HOSPITAL HOSPITAL W/IMAGE DOCUMENTA TION CYTP 01904 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 SLCTV 0 Y & Y & CELL BIODIAGNO BIODIAGNO ENHANCEME STICS STICS NT INTERPJ XCPT C/[place] [address] 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 PROLACTIN 0 Y & Y & BIODIAGNO BIODIAGNO STICS STICS CYTP 49811 PATHOLOGY PATHOLOGY CERV/VAG 0 & & AUTO THIN CYTOLOGY CYTOLOGY LAYER LAB LAB PREP MNL SCREEN OPH 68450 TEX [facility] 9 VISION NAVYA A XM&EVAL COMPRE NEW PT 1/> VST Encounters Encounter Start End Date Code Location Performer Type Date OFFICE 40185 [facility] OUTPATIEN 7 7 T VISIT 10 MINUTES [facility] - 7 7 [facility] INC T OFFICE 89323 [facility] OUTPATIEN 7 7 [facility] T VISIT 5 INC MINUTES EMERGENCY 17170 BRYANT RAMIREZ 6 6 PHYSICIAN DEPARTMEN S, PLLC T VISIT MODERATE SEVERITY HOSPITAL P[facility] - 6 6 [facility] OUTPATIEN INC T EMERGENCY 43532 PATT[facility] 6 6 [facility] DEPARTMEN INC T VISIT LIMITED/M INOR PROB OFFICE [address] [facility] OUTPATIEN 6 6 PHYSICIAN T VISIT S GROUP [address] - 6 6 NICK OUTPATIEN MED CTR T SAS PROGRAMMER ST OFFICE 32255 [facility] 6 6 ALENA T VISIT GASTROENT 25 EROLOGY A MINUTES EMERGENCY 51325 NANCY CHERRY DEPT 6 6 EMERGENCY SEKOU VISIT HIGH PHYSICIAN SEVERITY& S THREAT FUNJ EMERGENCY 34630 [facility] STAPLES KER DEPT 6 6 JARRELL VISIT EMERGENCY HIGH PHYSI SEVERITY& THREAT FUNCJ OFFICE 22630 TRACY KIM BRUCEE DEN OUTPATIEN 5 5 PRIMARY T VISIT CARE 25 CENTER MINUTES EMERGENCY 57477 [facility] 5 5 JARRELL DEPARTMEN EMERGENCY T VISIT PHYS MODERATE SEVERITY HOSPITAL ST - 5 5 NICK OUTPATIEN MED CTR T SAS PROGRAMMER HOSPITAL ST - 5 5 NICK OUTPATIEN MED CTR T SAS PROGRAMMER OFFICE 34744 [facility] DUE THO OUTPATIEN 5 5 LTH T VISIT ORTHOPAE 15 MINUTES OFFICE 33840 TRACY GREEN DEN OUTPATIEN 5 5 PRIMARY T VISIT CARE 15 CENTER MINUTES OFFICE 34603 [facility] GREFER OUTPATIEN 5 5 LTH SEKOU T NEW 30 ORTHOPAE MINUTES EMERGENCY 86163 [facility] CELESTE 5 5 EMERGENCY AND DEPARTMEN T VISIT PHYSICIAN HIGH/URGE S NT SEVERITY HOSPITAL PATTY - 5 5 [facility] OUTPATIEN INC OFFICE [address] [facility] SANTA OUTPATIEN 5 5 PHYSICIAN GEOFFREY T VISIT S GROUP 15 MINUTES OFFICE 38731 [facility] OUTPATIEN 4 4 [facility]Y GEOFFREY T VISIT 25 MINUTES EMERGENCY 96479 ALFARIS ALFARIS DEPT 4 4 MOH MOH VISIT HIGH SEVERITY& THREAT FUNJ OFFICE 95899 SHELBY RYAN OUTPATIEN 3 3 JAM JAM T VISIT 25 MINUTES OFFICE 53890 HEAD & DOMET SEKOU OUTPATIEN 3 3 NECK T VISIT SURGERY 25 ASSOC MINUTES [facility] ST - 3 3 NICK OUTPATIEN FT T GRAPEVINE OFFICE 13852 SHELBY RYAN OUTPATIEN 3 3 JAM JAM T VISIT 15 MINUTES OFFICE 39619 HEAD & DOMET SEKOU CONSULTAT 3 3 NECK ION SURGERY NEW/ESTAB ASSOC PATIENT 60 MIN OFFICE 05767 ELSI MORELAND OUTPATIEN 3 3 T VISIT 10 MINUTES OFFICE 69766 ARINA SANTA OUTPATIEN 3 3 GEOFFREY GEOFFREY T VISIT 15 MINUTES OFFICE 71470 FULLER JUNG FULLER JUNG OUTPATIEN 3 3 T VISIT 15 MINUTES OFFICE 76578 NEULopez QUAN OUTPATIEN 3 3 T VISIT 15 MINUTES OFFICE 42482 PETER GREEN OUTPATIEN 3 3 III MARY JO III MARY JO T NEW 30 MINUTES Emergency CHEKO LOVE MD (ER) 3 10:32 3 11:00 [facility] OFFICE 80154 SHELBY SHELBY OUTPATIEN 3 3 JENNI JAM T VISIT 25 MINUTES HOSPITAL [facility] - 3 3 [facility] OUTPATIEN INC T EMERGENCY 87743 PATTY 3 3 [facility] DEPARTMEN INC T VISIT MODERATE SEVERITY EMERGENCY 31713 GUZMAN LOVE 3 3 EMERGENCY [facility] T VISIT HIGH/URGE NT SEVERITY PERIODIC 26155 ARINA SANTA PREVENTIV 2 2 GEOFFREY GEOFFREY E MED EST PATIENT 18-39 YRS HOSPITAL [facility] - 1 1 [facility] OUTPATIEN INC T HOSPITAL [facility]ATT[facility] - 1 1 [facility] OUTPATIEN INC T OFFICE 25159 [facility] 1 1 [facility] T VISIT CLINIC OF 15 DENISE MINUTES OFFICE 62829 [facility] OUTPATIEN 1 1 [facility] T VISIT CLINIC OF 15 DENISE MINUTES HOSPITAL PATTY - 1 1 [facility] INPATIENT INC OFFICE 81296 [facility] OUTPATIEN 1 1 [facility] T VISIT CLINIC OF 15 DENISE MINUTES OFFICE 01107 [facility] OUTPATIEN 1 1 [facility] T VISIT CLINIC OF 15 DENISE MINUTES OFFICE 28675 [facility] OUTPATIEN 0 0 [facility] T VISIT CLINIC OF 15 DENISE MINUTES OFFICE 14511 [facility] OUTPATIEN 0 0 [facility] T VISIT CLINIC OF 15 DENISE MINUTES OFFICE 90440 [facility] OUTPATIEN 0 0 [facility] T VISIT [facility]INIC OF [address] [place] - 0 0 NICK OUTPATIEN FT T MARCI OFFICE 90177 ST OUTPATIEN 0 0 NICK T VISIT FT 10 MARCI MINUTES OFFICE [address] [facility] OUTPATIEN 0 0 HOSPITAL T VISIT RUST [address] [facility] [address] [facility] 33368 EMERGENCY SHARIF, 0 0 CARE FABRIZIO BERMUDEZMEN PHYS T VISIT [facility] HIGH/URGE [place] NT SEVERITY OFFICE 50526 [facility] OUTPATIEN 0 0 NICK JUDIE C T NEW 45 MINUTES PHYSICIAN S OFFICE 80570 [facility] OUTPATIEN 0 0 HOSPITAL T VISIT RUST 10 MINUTES [facility] 95360 EMERGENCY GAUTRAUD, 0 0 CARE NGUYỄN BERMUDEZMEN PHYS T VISIT [facility] HIGH/URGE [place] NT SEVERITY HOSPITAL KENT - [facility] T [facility] 52527 TRACY ALVAREZ YOUNG, OUTPATIEN 0 0 PRIMARY NICKOLAS T VISIT CARE 25 CENTERINC MINUTES
--- OUTSIDE RECORDS SUMMARY | 2017-06-10 01:33 | External Medical Summary Rpt | CCD ---
Author Author , JACK Organization JACK Address Unknown Phone [email or web address] Care Team Providers Care Dealer Accounts Investigator Name Role Phone A Randall العلي MD [...] FABRIZIO GAMEZ MD, Unavailable Unavailable FABRIZIO SHARIF [facility], Unavailable Unavailable [facility] ASHLEY, ASHLEY Unavailable Unavailable NGUYỄN EDWARDS, Unavailable Unavailable NGUYỄN EDWARDS DEN, JANISE DEN Unavailable Unavailable FULLER JUNG, FULLER JUNG Unavailable Unavailable FULLER JUNG, FULLER JUNG Unavailable Unavailable GREFER SEKOU, GREFER Unavailable Unavailable SEKOU HAGCHERLIN MARADIAGA, Unavailable Unavailable OSIRISCHERLIN ASHWINI MIRELLA BRUCE, MIRELLA Unavailable Unavailable BRUCE [facility] Unavailable Unavailable OMMUNITY, [facility] Un[facility] Unavailable INC, [facility] AL ERA, AL Unavailable Unavailable ERA REA ALENA, Unavailable Unavailable REA ALENA [facility] Unavailable Unavailable [facility], [facility] CALZADA MERLY, CALZADA MERLY Unavailable Unavailable CALZADA MERLY, CALZADA MERLY Unavailable Unavailable CALZADA, NAVYA A, Unavailable Unavailable CALZADA, NAVYA A [facility], Unavailable Unavailable [facility] HOBLIDERIKEL ERA, Unavailable Unavailable HOBLITZEL [facility] Unavailable Unavailable [facility], [facility] KRUSLING EDW, Unavailable Unavailable KRUSLING EDW KUMLER III MARY JO, Unavailable Unavailable KUMLER III MARY JO [facility] Unavailable Unavailable [facility], [facility]available Unavailable [facility], [facility] & Unavailable Unavailable [facility] Un[facility] Un[facility], [facility] Unavailable [facility] Unavailable Unavailable [facility], [facility] BRYANT, MARCELO, BRYANT, MARCELO Unavailable Unavailable [facility] DAVID, Unavailable Unavailable [facility] Unavailable Unavailable SERVICES, [facility] GRACE BUNCH, Unavailable Unavailable GRACE BUNCH [facility] Unavailable Unavailable ASSOCIAT, [facility], Unavailable Unavailable [facility] [...] Unavailable OF NOT, [facility]available Unavailable [facility] Unavailable Unavailable DEPARTMT, [facility] Unavailable Unavailable DEPARTMT, [facility] JA GRE, JA Unavailable Unavailable GRE TRACY JAM, TRACY Unavailable Unavailable JAM SCHNITZLER MONICO, Unavailable Unavailable SCHNITZLER MONICO SCHNITZLER MONICO, Unavailable Unavailable SCHNITZLER MONICO SCIFRES, SCIFRES Unavailable Unavailable SCIFRES, SCIFRES Unavailable Unavailable [facility] Unavailable Unavailable [facility]GENCY [facility], [facility] Unavailable [facility]available MARCI, [facility] Unavailable Unavailable [facility] Unavailable Unavailable [facility] KER, WALTON KER Unavailable Unavailable MELVIN BALJIT, MELVIN Unavailable Unavailable [facility] Unavailable Unavailable GASTROENTEROLOGY A, [facility] # Unavailable Unavailable [id number], [facility] # [id number] [id number], Unavailable Unavailable [id number] # Unavailable Unavailable [phone], [facility] # [phone] AMARJIT MALAGON Unavailable Unavailable YUNIEL [facility] Unavailable Unavailable OF [place], [facility] Unavailable Unavailable NICKOLAS LARA, Unavailable Unavailable NICKOLAS LARA ANTHONY, Unavailable Unavailable MARIELENA QUINTEROS Purpose Continuity of Care Document - 03-13-2009 through 2016 Problems Code Diagnosis DOS Provider Status [id number] HORDEOLUM 04-16-2017 SCIFRES EXTERNUM RIGHT LOWER EYELID K529 NONINFECTIV 02-28-2017 [facility] ITIS & COLITIS UNS K029 DENTAL 08-23-2016 [facility] UNSPECIFIED INC K044 ACUTE 08-23-2016 [facility], PERIODONTIT PLLC IS OF PULPAL ORIGIN K0500 ACUTE 08-23-2016 [facility] PLAQUE INC INDUCED Z720 TOBACCO USE 08-23-2016 [facility] INC R102 PELVIC AND 06-05-2016 [facility] PAIN GROUP K5090 CROHNS 06-04-2016 [facility] DISEASE UNS GASTROENTER WITHOUT OLOGY A COMPLICATIO NS V59476 CROHNS 06-04-2016 ST DISEASE UNS NICK MED CTR ARCHITECTURE TECHNICIAN W/UNSPECIFI ST ED COMPLICATIO NS R197 DIARRHEA 06-04-2016 [facility] UNSPECIFIED GASTROENTER OLOGY A R634 ABNORMAL 06-04-2016 [facility] WEIGHT LOSS GASTROENTER OLOGY A K51556 REGULAR 06-03-2016 [facility] MERLY ASTIGMATISM BILATERAL K5289 OTH SPEC 05-18-2016 [facility] NONINFECTIV GASTROENTER E OLOGY A GASTROENTER ITIS & COLITIS R1084 GENERALIZED 05-18-2016 ANESTHESIA ABDOMINAL GROUP PAIN PRACTICE Z008 ENCOUNTER 05-18-2016 [facility] FOR OTHER ASSOCIATES GENERAL OF [facility] EXAMINATION R1030 LOWER 05-17-2016 [facility] ABDOMINAL GASTROENTER PAIN OLOGY A UNSPECIFIED R12 HEARTBURN 05-17-2016 [facility] OLOGY A N771 VAGINITIS 05-14-2016 [facility] VULVIT & N EMERGENCY VULVOVAGINI PHYSI T IN DZ CLASS ELSW R1031 RIGHT LOWER 05-14-2016 [facility] PAIN ASSOCIAT R109 UNSPECIFIED 05-14-2016 [facility] ABDOMINAL [facility] PAIN ASSOCIAT R112 NAUSEA WITH 05-14-2016 [facility]OM[facility]ING [facility] UNSPECIFIED ASSOCIAT A174HHL COMP 05-14-2016 [facility] SURGICAL & N EMERGENCY MEDICAL PHYSI CARE UNS INITIAL ENCNTR L0291 CUTANEOUS 08-06-2015 [facility] ABSCESS [facility] UNSPECIFIED HOLDINGS L26643 ENCOUNTER 07-30-2015 [facility], 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 EX[facility] GENERAL RTN W/O ABNORMAL FIND 90756 GENERALIZED 03-20-2015 [facility] V790 SCREENING 03-20-2015 [facility] FOR [facility]IMARY DEPRESSION CARE CENTER 73077 CLOS 03-19-2015 [facility] FRACTURE H ORTHOPAE MID/PROXIMA L PHALANX/PHA LANG HAND 7295 PAIN IN 03-08-2015 [facility] SOFT N EMERGENCY TISSUES OF PHYS LIMB 16507 PAIN IN 02-22-2015 [facility] JOINT, HAND H ORTHOPAE V4589 OTHER 02-22-2015 ST POSTSURGICA NICK L STATUS MED CTR ARCHITECTURE TECHNICIAN OTHER ST V571 OTHER 02-22-2015 ST PHYSICAL NICK THERAPY MED CTR ARCHITECTURE TECHNICIAN ST 6929 CONTACT 02-13-2015 [facility] DERMATITIS& PRIMARY OTHER CARE CENTER ECZEMA DUE UNSPEC CAUSE V851 BODY MASS 02-13-2015 [facility] CO INDEX PRIMARY [facility] 19-24 ADULT 89056 PAIN IN 02-11-2015 RADI[facility]Y JOINT, ASSOCIATES ANKLE AND OF [facility] FOOT 36559 CLOSED 02-11-2015 [facility] FRACTURE EMERGENCY UNSPEC PHYSICIANS PHALANX/PHA LANGES HAND 58878 UNSPECIFIED 02-11-2015 [facility] SITE OF EMERGENCY ANKLE PHYSICIANS SPRAIN AND STRAIN 9599 INJURY 02-11-2015 RADIOLOGY OTHER AND ASSOCIATES UNSPECIFIED OF [facility] UNSPECIFIED SITE 58438 LUMP OR 10-09-2014 [facility] MASS IN PHYSICIANS [place] GROUP 46333 OTHER 10-09-2014 [facility] SPECIFIED [facility] DISORDERS INC OF [place] 91575 OTHER 10-09-2014 [facility] RADIOLOGICA L EXAM [place] 91407 REGULAR 03-21-2014 [facility] MERLY ASTIGMATISM 6201 CORPUS 03-16-2014 [facility] LUTEUM CYST OR HEMATOMA 6259 UNSPEC 03-16-2014 [facility] SYMPTOM ASSOC W/FEMALE GENITAL ORGANS 01318 ABDOMINAL 03-16-2014 [facility] PAIN, LEFT LOWER QUADRANT 6202 OTHER AND 03-12-2014 [facility] UNSPECIFIED MEDICAL OVARIAN IMAGING ASS CYST 7242 LUMBAGO 03-12-2014 [facility] MOH 7245 UNSPECIFIED 03-12-2014 [facility]HE [facility] 7880 RENAL COLIC 03-12-2014 [facility] 58072 HEAD 03-12-2014 [place] INJURY, MEDICAL UNSPECIFIED IMAGING ASS 4618 OTHER [...] MYOSITIS 4739 UNSPECIFIED 07-04-2013 SINUSITIS NICK COVARRUBIAS 72643 LOSS OF 06-28-2013 [facility] 97307 HORDEOLUM 06-23-2013 CAL[facility] MERLY EXTERNUM 5990 URINARY 06-16-2013 [facility] TRACT INFECTION SITE NOT SPECIFIED 71726 HEMATURIA 06-16-2013 [facility] UNSPECIFIED 1330 SCABIES 04-24-2013 FULLER JUNG 6989 UNSPECIFIED 04-24-2013 FULLER JUNG PRURITIC DISORDER 37945 EFFUSION OF 01-11-2013 [facility] FOOT JOINT & ORTHO 34704 OTHER ANKLE 01-11-2013 [facility] STRAIN & ORTHO 42894 CLOSED 01-06-2013 SHELBY ARTEAGA FRACTURE OF UNSPECIFIED PART OF TIBIA 824.8 824.8 FX 01-06-2013 Patty ANKLE [facility] NOS-CLOSED Hospital 8242 CLOSED 01-06-2013 DMITRIY FRACTURE OF ALBERTO LATERAL MALLEOLUS 8248 UNSPECIFIED 01-06-2013 [facility] CLOSED EMERGENCY FRACTURE OF SERVICES ANKLE 9597 INJURY 01-06-2013 DMITRIY OTHER&UNSPE ALBERTO CIFIED KNEE LEG ANKLE&FOOT E849.8 E849.8 01-06-2013 Patty ACCIDENT IN [facility] E880.9 E880.9 FALL 01-06-2013 Patty ON [facility] STAIR/STEP Hospital [facility] V7231 ROUTINE 05-17-2012 [facility] AL EXAMINATION 3671 MYOPIA 04-29-2011 TEX VISION 6262 EXCESSIVE 03-09-2011 [facility] [place] N V242 ROUTINE 11-20-2010 PATHOLOGY & CYTOLOGY FOLLOW-UP LAB V252 STERILIZATI 10-11-2010 [facility] OF [place] V3000 SINGLE 10-11-2010 A C [facility] W/O 650 NORMAL 10-10-2010 [facility] CLIN[facility] OF [place] 99153 OLIGOHYDRAM 10-10-2010 [facility] DELIVERED CLINIC OF [place] 49107 OTH&UNS CRD 10-10-2010 [facility] W/O COMPRS CLINIC OF COMP L&D [place] DELIV V270 OUTCOME OF 10-10-2010 [facility] DELIVERY HEALTH SINGLE CLINIC OF LIVEBORN [place] 93816 OLIGOHYDRAM 10-09-2010 [facility] ANTEPARTUM CLINIC OF [place] V221 SUPERVISION 10-02-2010 [facility]EN[facility] OF OTHER HEALTH NORMAL CLINIC OF [place] 48161 MATERNAL RX 2010 [facility] HEALTH COMPL PG CLINIC OF CB/PP UNS [place] EOC 6110 INFLAMMATOR 08-04-2010 COMBINED [place] [address] PLACENTA 07-23-2010 [facility] WITHOUT CLINIC OF HEMORRHAGE [place] ANTEPARTUM 53780 POOR 07-23-2010 [facility] GROW[facility] HE[facility] MOTH CLINIC OF LUDMILA WALKER COND/COMP V653 DIETARY 06-19-2010 [facility] HEALTH E AND DEPARTME COUNSELING V6540 COUNSELING 06-19-2010 [facility] NOS CO HEALTH DEPARTME V283 ENCOUNTER 06-05-2010 [facility]EN[facility] ROUTINE HEALTH SCREEN CLINIC OF LEYDI Salmon ULTRASONIC V7242 03-26-2010 [facility] EXAM[facility]ATION [facility] OR TEST S POSITIVE RESULT 96629 OTHER 03-24-2010 [facility]EN[facility] SPECIFED HEALTH COMPLICATIO CLINIC OF Luis Antonio MCCOY ANTEPARTUM PLLC 16545 PAP SMER 03-21-2010 PATHOLOGY & CERV CYTOLOGY W/ATYPICAL LAB SQUAMOUS CELLS UNDET 94598 CERV HIGH 03-21-2010 PATHOLOGY & RISK HUMAN CYTOLOGY PAPILLOMAVI LAB LEATHA DNA TEST POS V745 SCREENING 03-21-2010 PATHOLOGY & EXAMINATION CYTOLOGY FOR LAB VENEREAL DISEASE 75311 OTHER 03-06-2010 ST POSTOPERATI NICK VE FT MARCI INFECTION NEC V6709 FOLLOW-UP 03-06-2010 ST EXAMINATION NICK FOLLOWING FT MARCI OTHER SURGERY 55742 MASTODYNIA 01-15-2010 [facility] 6100 SOLITARY 10-03-2009 [facility]ST OF RADIOLOGY [place] ASSOCIAT 25476 OTHER SIGN 10-03-2009 [facility] CO AND SYMPTOM [...] PH ZA 61 17 17 84 AR MO 5 05 MA IN CY E 10 [...] 1 09 PH CE AR TA MA MN CY NO PH #1 EN 56 9 5- 32 5 HY 53 12 01 [address] 74 -2 -2 .0 00 S ti OC 60 5- 7- 00 01 PH ve OD 10 20 20 27 AR ON 90 16 17 93 MA -A 1 76 CY CE TA #0 MN 23 NO 32 PH EN 5- 32 5 MN 00 12 01 20 10 00 CV [...] 20 3- 9- 00 RE 44 ve MO 05 [address] AM [...] 20 3- 3- 00 RE 44 ve MO 05 [address] AM [...] 1 60 30 CL 23 CL Ac MO 74 -2 -2 .0 IN 52 AR [...] 10 10 DE TA 1 PH RE MN AR K N- MA J CA CY FF 50 -3 25 -4 0 BU 00 09 09 40 10 RE 68 HASSAN Ac TA 14 -0 -0 .0 YN 53 RP ti LB 31 9- 9- 00 OL 39 EL ve -A 78 20 20 DS CE 70 10 10 GE TA 1 PH RA MN AR LD N- MA R CA CY FF 50 -3 25 -4 0 MO 65 08 08 30 30 RE 68 [...] 10 10 DE TA 1 PH RE MN AR K N- MA J CA CY [...] 5 PH EN AR E MA CY MO 37 02 02 00 56 28 RE [...] 5 PH EN AR E MA CY MO 00 01 01 00 10 2 WA 29 HE Ac OM 78 -1 -2 .0 LG 56 RF ti ET 11 RE 40 EL ve HASSAN 83 20 20 EN 6 ZI 00 10 10 # RO NE 1 B 07 F 25 34 6 MG TA BL ET MO 37 01 01 00 14 14 WA [...] Procedure DOS Code Location Performer Comment COLLECTIO [address] N VENOUS 6 [facility] BLOOD MED [facility] MED CTR VENIPUNCT ARCHITECTURE TECHNICIAN ST ARCHITECTURE TECHNICIAN ST URE [address] HYDROXY 6 NICK NICK INCLUDES MED CTR MED CTR FRACTIONS ARCHITECTURE TECHNICIAN ST ARCHITECTURE TECHNICIAN ST IF PERFORMED COMPREHEN [address] SIVE 6 NICK NICK METABOLIC MED CTR MED CTR PANEL ARCHITECTURE TECHNICIAN ST ARCHITECTURE TECHNICIAN ST BLOOD [address] COUNT 6 NICK NICK COMPLETE MED CTR MED CTR AUTO&AUTO ARCHITECTURE TECHNICIAN ST ARCHITECTURE TECHNICIAN ST DIFRNTL WBC HEPATITIS [address] B CORE 6 NICK NICK ANTIBODY MED CTR MED CTR HBCAB ARCHITECTURE TECHNICIAN ST ARCHITECTURE TECHNICIAN ST TOTAL OPHTH 63392 [facility] MEDICAL 6 XM&EVAL COMPRHNSV ESTAB PT 1/> HOSPITAL 13917 [facility] DISCHARGE 6 DOWNS EDW DAY MANAGEMEN PHYSICIAN T 30 S MIN/< COLONOSCO 110[address] [facility] PY 6 GRE W/BIOPSY GASTROENT SINGLE/MU EROLOGY A LTIPLE ANE 82611 ANESTHESI [facility] 6 A GROUP INTESTINE PRACTICE ENDOSCOPY DISTAL DUODENUM RADIOLOGI 54302 RADIOLOGY TRACY C EXAM 6 JAM CHEST 2 ASSOCIATE VIEWS S OF NOTH FRONTAL&L ATERAL SBSQ [address] ED CARE/DAY 25 PHYSICIAN MINUTES S SBSQ 34908 [facility] 6 YUNIEL CARE/DAY GASTROENT 25 EROLOGY A MINUTES INITIAL 48286 [facility] INPATIENT 6 ALENA CONSULT GASTROENT NEW/ESTAB EROLOGY A PT 80 MIN INITIAL [address] EDW CARE/DAY 50 PHYSICIAN MINUTES S FINAL G9551 RHONDA AL REPR ABD 6 ERA IMAG STS RADIOLOGY W/O ASSOCIAT INCIDNT FND LES NTD: FINAL G9637 RHONDA AL REPORTS 6 ERA W/DOC RADIOLOGY 1/MORE ASSOCIAT DOSE REDUCTION TECH RADEX ABD 79136 RHONDA AL COMPL 6 ERA AQT ABD RADIOLOGY W/S/E/D ASSOCIAT VIEWS [address] [place] [address] RHONDA AL ABDOMEN & 6 ERA PELVIS RADIOLOGY W/CONTRAS ASSOCIAT T MATERIAL CULTURE 58148 [facility] R[facility] BACTERIAL 5 NICKOLAS NICKOLAS ANY HOLDINGS HOLDINGS SOURCE ANAEROBIC ISO&ID CUL BACT 60158 [facility] ANAEROBIC 5 NICKOLAS NICKOLAS ADDL HOLDINGS HOLDINGS METHS DEFINITIV E EA ISOL CYTP C/V 64507 [facility], PICKLESIM AUTO THIN 5 LLC ER JR KURT LYR PREPJ SCR MNL RESCR PHYS RADEX 07855 [facility] DUE THO FINGR 5 LTH MINIMUM 2 ORTHOPAE VIEWS RADEX 78610 [facility] HAND 5 EIDER ASHWINI MINIMUM 3 RADIOLOGY VIEWS ASSOCIAT RADEX 98055 [facility] DUE THO FINGR 5 LTH MINIMUM 2 ORTHOPAE VIEWS RADEX 64573 [facility] HOBLITZEL FINGR 5 LTH ERA MINIMUM 2 ORTHOPAE VIEWS FINGER L3933 ST ST ORTHOTIC 5 NICK ROMERO W/O MED CTR MED CTR JOINTS ARCHITECTURE TECHNICIAN ST ARCHITECTURE TECHNICIAN ST CUSTOM FABRICATE D RADEX 17471 [facility] DUE THO FINGR 5 LTH MINIMUM 2 ORTHOPAE VIEWS PRQ SKEL [address] FIXJ 5 NICK ROMERO PHLNGL MED CTR MED CTR SHFT FX ARCHITECTURE TECHNICIAN ST ARCHITECTURE TECHNICIAN ST PROX/MIDD LE PX/F/T INJ J0702 [facility] CO GORE DEN BETAMETHA 5 PRIMARY SONE CARE ACETATE & CENTER PHOSPHATE 3 MG THERAPEUT 02563 [facility] GORE DEN IC 5 PRIMARY PROPHYLAC CARE TIC/DX CENTER INJECTION SUBQ/IM RADEX 34476 [facility] GREFER FINGR 5 LTH SEKOU MINIMUM 2 ORTHOPAE VIEWS RADEX 05450 RADIOLOGY GABRIEL ANKLE 5 FRANCO COMPLETE ASSOCIATE MINIMUM 3 S OF NOTH VIEWS RADEX 15971 RADIOLOGY GABRIEL FINGR 5 FRANCO MINIMUM 2 ASSOCIATE VIEWS S OF NOTH US [place] 58317 [place] [facility] REAL 5 MEDICAL ALBERTO TIME IMAGING WITH ASS IMAGE COMPLETE OPHTH 18803 [facility] MEDICAL 4 XM&EVAL COMPRHNSV ESTAB PT 1/> [place] [address] ARINA SANTA TRANSVAGI [address] [place] [address] [place] DMITRIY ABDOMEN & 4 MEDICAL ALBERTO PELVIS IMAGING W/O ASS CONTRAST MATERIAL RADEX 64530 [facility] SPINE 4 MEDICAL MEDICAL LUMBOSACR IMAGING IMAGING AL [place] [address] [place] [address] [place] DMITRIY HEAD/BRAI 4 MEDICAL ALBERTO N W/O IMAGING CONTRAST ASS MATERIAL NASAL/SIN 69109 HEAD & DOMET SEKOU US NDSC 3 NECK SURG W/BX SURGERY ASSOC POLYPECT/ DBRDMT SPX ANESTHESI 79334 SCHNITZLE SCHNITZLE A NOSE & 3 R MONICO R [place] [address] EDWARDS EDWARDS SURG 3 ALIVIA ALIVIA PATHOLOGY GROSS&[place] [address] MAXILLOFA 3 NICK NICK CIAL W/O FT FT & MARCI COVARRUBIAS W/CONTRAS T MATERIAL LOCM Q9967 ST ST 300-399 3 NICK NICK MG/ML FT FT IODINE MARCI COVARRUBIAS CONCENTRA TION PER ML BLOOD 21119 [facility] COUNT 3 DIAGNOSTI DIAGNOSTI COMPLETE CS CS AUTO&AUTO DIFRNTL WBC BASIC 06183 [facility] METABOLIC 3 DIAGNOSTI DIAGNOSTI [place] [address] [facility] THYROID 3 DIAGNOSTI DIAGNOSTI STIMULATI CS CS NG HORMONE TSH URNLS DIP 30842 ARINA SANTA 3 GEOFFREY GEOFFREY STICK/TAB LET RGNT NON-AUTO W/O MICRSCP INJECTION J1040 NEUS AVELINA NEUS AVELINA 3 METHYLPRE DNISOLONE ACETATE 80 MG THERAPEUT 70567 NEUS AVELINA NEUS AVELINA IC 3 PROPHYLAC TIC/DX INJECTION SUBQ/IM ANKLE L4350 NATIONAL NATIONAL CONTROL 3 PROSTHETI PROSTHETI ORTHOSIS CS & CS & STIRRUP ORTHO ORTHO STYL RIGID PREFAB CRTCHS E0114 [facility] UNDARM 3 OTH THAN WOOD PAIR PAD TIP&HNDGR IP RADEX 43708 [facility] BRAMBILA ANKLE 3 [facility] COMPLETE INC INC MINIMUM 3 VIEWS CLTX DSTL 83234 [facility] O'MANDY FIBULAR 3 EMERGENCY JARRELL FX LAT SERVICES MALLS W/O MANJ URNLS DIP 34247 ARINA SANTA 2 GEOFFREY GEOFFREY STICK/TAB LET RGNT NON-AUTO W/O MICRSCP NONEMERG A0120 LKLP LICKING TRNSPRT: 1 [facility] ACTION COMMUNITY MTN ACT AREA/OTH SYS OPHTH 86479 TEX CALZADA [facility] 1 VISION XM&EVAL COMPRHNSV ESTAB PT 1/> NONEMERG A0120 LKLP BRYANT TRNSPRT: 1 [facility] OMMUNITY MTN AREA/OTH SYS NONEMERG A0120 LKLP BRYANT TRNSPRT: 1 [facility] OMMUNITY MTN AREA/OTH SYS NONEMERG A0120 LKLP BRYANT TRNSPRT: 1 [facility] OMMUNITY MTN AREA/OTH SYS ENDOMETRI 6823 [facility] BRAMBILA AL 1 [facility] ABLATION INC INC HYSTEROSC 6812 PATTY BRAMBILA OPY 1 [place] [address] PATTY BRAMBILA INFUSION 1 [facility] THERAPY INC INC PROPHYLAX IS/DX EA HOUR THERAPEUT 23780 PATTY BRAMBILA IC 1 [facility] INJECTION INC [place] [address] CHIPPS [facility]ZMAN SURG 1 JOSE & JUAN DAVID PATHOLOGY DUBILIER GROSS&SEKOU ROSCOPIC EXAM HYSTEROSC 84882 [facility] ARINA OPY 1 HEALTH GEOFFREY ENDOMETRI CLINIC OF ME [place] ABLATION ANES 33962 [facility] HYSTEROSC 1 ANESTH BRUCE OPY&/HYST OF THE EROSALPIN BLUE GOGRAPHY W/BX BLOOD 39494 [facility] BRAMBILA COUNT 1 [facility] COMPLETE INC INC AUTO&AUTO DIFRNTL WBC GONADOTRO 20020 [facility] BRAM[facility]IL[facility] PIN 1 [facility]OS[facility] CHORIONIC INC INC QUALITATI VE NONEMERG A0120 LK BRYANT TRNSPRT: 1 [facility] OMMUNITY MTN AREA/OTH SYS NONEMERG A0120 [facility] TR[facility]: 1 [facility] OMMUNITY MTN AREA/OTH SYS NONEMERG A0120 [facility] TRNSPRT: 1 [facility] OMMUNITY MTN AREA/OTH SYS NONEMERG A0120 [facility] TRNSPRT[facility] 1 [facility] OMMUNITY MTN AREA/OTH SYS NONEMERG A0120 [facility] TRNSPRT: 1 [facility] OMMUNITY MTN AREA/OTH SYS NONEMERG A0120 [facility] TRNS[facility]: 1 [facility] OMMUNITY MTN AREA/OTH SYS NONEMERG A0120 [facility] TRNSPRT: 1 [facility] OMMUNITY MTN AREA/OTH SYS CYTP C/V 13131 PATHOLOGY PATHOLOGY AUTO THIN 1 & & LYR CYTOLOGY CYTOLOGY PREPJ SCR LAB LAB MNL RESCR PHYS NONEMERG A0120 [facility] TRNSPRT: 1 [facility] OMMUNITY MTN AREA/OTH SYS NONEMERG A0120 [facility] TRNSPRT: 1 [facility] OMMUNITY MTN AREA/OTH SYS NONEMERG A0120 [facility] TRNSPRT: 1 [facility] OMMUNITY MTN AREA/OTH SYS [facility] [id number] A Randall العلي A DISCHARGE 1 [facility] DAY PSC MANAGEMEN T 30 MIN/< 1ST [id number] [facility]/HUNG 1 [facility] CARE PER DAY NML NB OT 6639 PATTY PATTY BILATERAL 1 [facility] INC DESTRUC/O CCLUSION FALLOPIAN TUBES ANES IPER 00465 [facility] LEYVA GERTRUDE LWR ABD 1 ANESTH W/LAPS OF THE TUBAL BLUE LIGATION/ TRANSECT LIG/TRNSX 72822 [facility] J FLP [facility] ABDL/VAG DENISE POSTPARTU M SPX VAGINAL 09358 [facility] DELIVERY 1 [facility] DENISE NEURAXIAL [id number] [facility] MELVIN LABOR 1 ANESTH BALJIT ANALG/ANE OF THE S PLND BLUE VAGINAL DELIVERY OTHER 7359 PATTY BRAMBILA MANUALLY 1 [facility] ASSISTED INC INC DELIVERY DOPPLER 10136 [facility] VELOCIMET 1 [facility] UMBILICAL [place] PREG 86590 [facility] UTERUS 1 [facility] REAL TIME [facility] OF F/U DENISE TRNSABDL PER FETUS 53257 [facility] BIOPHYSIC 1 [facility] PROFILE DENISE W/O NON-STRES S TESTING NONEMERG A0120 [facility] TRNSPRT: 1 [facility] OMMUNITY MTN AREA/OTH SYS CUL BACT 63121 COMBINED COMBINED XCPT 1 PHYSICIAN PHYSICIAN URINE S LA S LA BLOOD/STO OL AEROBIC ISOL NONEMERG A0120 [facility] TRNSPRT: 1 [facility] OMMUNITY MTN AREA/OTH SYS NONEMERG A0120 [facility] TRNSPRT: 0 [facility] OMMUNITY MTN AREA/OTH SYS NONEMERG A0120 [facility] TRNSPRT: 0 [facility] OMMUNITY MTN AREA/OTH SYS CUL BACT 19473 COMBINED COMBINED XCPT 0 PHYSICIAN PHYSICIAN URINE S LA S LA BLOOD/STO OL AEROBIC ISOL NONEMERG A0120 [facility] TRNSPRT: 0 [facility] OMMUNITY MTN AREA/OTH SYS 75244 [facility] BIOPHYSIC [facility] PROFILE DENISE W/O [place]REG 06156 [facility] UTERUS 0 [facility] REAL TIME [facility]IN[facility] OF F/U DENISE TRNSABDL PER FETUS DOPPLER 96779 [facility] VELOCIMET 0 [facility] R[facility] UMBILICAL [place]ISE ARTERY NONEMERG A0120 [facility]T: [facility] OMMUNITY MTN AREA/OTH SYS NONEMERG A0120 [facility] TRNSPRT: [facility] OMMUNITY MTN AREA/OTH SYS MEDICAL 65161 ROMA BRANDON NUTRITION 0 [facility] ASS[facility]&IVN DEPARTME DEPARTME TJ INDIV EACH 15 MN NONEMERG A0120 [facility] TRNSPRT: 0 [facility] ACTION OMMUNITY MTN AREA/OTH SYS NONEMERG A0120 [facility] TRNSPRT: 0 [facility] OMMUNITY MTN AREA/OTH SYS US PREG 36416 [facility] UTERUS [facility] AFTER [facility] OF TRIMEST [facility]ISE GESTATION NONEMERG A0120 [facility] TRNSPRT: 0 [facility] [place] OMMUNITY MTN AREA/OTH SYS [...] ACTION OMMUNITY MTN ARE[place] [id number] [employer] MED[employer] LEAD 0 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 IES IES [place] PREG 24759 [facility], UTERUS 0 [facility] W/IMAGE DCMTN NADINE WOOVAJose PLLC MUTATION 79902 MOLECULAR MOLECULAR ID 0 ENZYMATIC PATHOLOGY PATHOLOGY LAB NETW LAB NETW LIG/PRIME R XTN 1 SGM EA IADNA 84652 PATHOLOGY PATHOLOGY CHLAMYDIA 0 & & CYTOLOGY CYTOLOGY TRACHOMAT LAB LAB IS AMPLIFIED PROBE TQ IADNA 59347 PATHOLOGY PATHOLOGY NEISSERIA 0 & & CYTOLOGY CYTOLOGY GONORRHOE LAB LAB AE AMPLIFIED PROBE TQ IADNA 49041 PATHOLOGY PATHOLOGY PAPILLOMA 0 & & VIRUS CYTOLOGY CYTOLOGY HUMAN LAB LAB AMPLIFIED PROBE TQ CYTP 75101 PATHOLOGY PATHOLOGY CERVICAL/ 0 & & VAGINAL CYTOLOGY CYTOLOGY REQ LAB LAB INTERP PHYSICIAN CYTP C/V 40432 PATHOLOGY PATHOLOGY AUTO THIN 0 & & LYR CYTOLOGY CYTOLOGY PREPJ SCR LAB LAB MNL RESCR PHYS NONEMERG A0120 LKLP BRYANT TRNSPRT: 0 [facility] OMMUNITY MTN AREA/OTH SYS NONEMERG A0120 LKLP BRYANT TRNSPRT: 0 [facility] OMMUNITY MTN AREA/OTH SYS NONEMERG A0120 LKLP BRYANT TRNSPRT: 0 [facility] OMMUNITY MTN AREA/OTH SYS NONEMERG A0120 LKLP BRYANT TRNSPRT: 0 [facility] OMMUNITY MTN AREA/OTH SYS NONEMERG A0120 [facility] 0 [facility] OMMUNITY MTN ARE[place] [address] [address] BRYANT, MARCELO SURG 0 NICK PATHOLOGY MED CTR GROSS&SEKOU ROSCOPIC EXAM MASTOTOMY 94379 [facility], 0 NICK Pereira W/EXPLORA TION/SANDY PHYSICIAN ELISA Marroquin ABSCESS DEEP EXCISION 54903 [facility], LACTIFERO 0 NICK Pereira US DUCT FISTULA PHYSICIAN Lopez TIDWELL 21283 INDIO FARAH INTEG 0 NT N, EXTREMITI ANESTHESI MARIELENA ES ANT OLOGIST TRUNK & PERINEUM NOS COLLECTIO 26904 [facility] YOUNG, N VENOUS 0 PRIMARY [facility] URE US BREAST 19941 YOLI KENT REAL 0 [facility] W/IMAGE DOCUMENTA TION CYTP 04284 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 SLCTV 0 Y & Y & CELL BIODIAGNO BIODIAGNO ENHANCEME STICS STICS NT INTERPJ XCPT C/[place] [address] 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 PROLACTIN 0 Y & Y & BIODIAGNO BIODIAGNO STICS STICS CYTP 23171 PATHOLOGY PATHOLOGY CERV/VAG 0 & & AUTO THIN CYTOLOGY CYTOLOGY LAYER LAB LAB PREP MNL SCREEN OPH 25734 TEX [facility] 9 VISION NAVYA A XM&EVAL COMPRE NEW PT 1/> VST Encounters Encounter Start End Date Code Location Performer Type Date OFFICE 64317 [facility] OUTPATIEN 7 7 T VISIT 10 MINUTES [facility] T OFFICE 98827 [facility] 7 [facility] T VISIT 5 INC MINUTES EMERGENCY 61063 BRYANT RAMIREZ 6 6 PHYSICIAN DEPARTMEN S, PLLC T VISIT MODERATE SEVERITY [facility]OSPITAL [facility] - 6 6 [facility] OUTPATIEN INC T EMERGENCY 14824 [facility] 6 6 [facility] DEPARTMEN INC T VISIT LIMITED/M INOR PROB OFFICE 18621 [facility] OUTPATIEN 6 6 PHYSICIAN T VISIT S GROUP [address] - 6 6 [facility] OUTPATIEN MED CTR T ARCHITECTURE TECHNICIAN ST OFFICE 41120 [facility] OUTPATIEN 6 6 ALENA T VISIT GASTROENT 25 EROLOGY A MINUTES EMERGENCY 38666 NANCY CHERRY DEPT 6 6 EMERGENCY SEKOU VISIT HIGH PHYSICIAN SEVERITY& S THREAT FUNJ EMERGENCY 50371 [facility] STAPLES KER DEPT 6 6 JARRELL VISIT EMERGENCY HIGH PHYSI SEVERITY& THREAT FUNCJ OFFICE 38344 TRACY KIM BRUCEE DEN OUTPATIEN 5 5 PRIMARY T VISIT CARE 25 CENTER MINUTES EMERGENCY 73116 [facility] CHR 5 5 JARRELL DEPARTMEN EMERGENCY T VISIT PHYS MODERATE SEVERITY HOSP[facility] ST - 5 5 N[facility] OUTPATIEN MED CTR T ARCHITECTURE TECHNICIAN HOSPITAL ST - 5 5 [facility] OUTPATIEN MED CTR T ARCHITECTURE TECHNICIAN OFFICE 93553 [facility] OUTPATIEN 5 5 LTH T VISIT ORTHOPAE 15 MINUTES OFFICE 58387 [facility] GREEN DEN OUTPATIEN 5 5 PRIMARY T VISIT CARE 15 CENTER MINUTES OFFICE 97498 [facility] GREFER OUTPATIEN 5 5 LTH SEKOU T NEW 30 ORTHOPAE MINUTES EMERGENCY 07724 [facility] 5 5 EMERGENCY AND DEPARTMEN T VISIT PHYSICIAN HIGH/URGE S NT SEVERITY [facility]OSPITAL [facility] - 5 5 [facility] OUTPATIEN INC OFFICE 93977 [facility] OUTPATIEN 5 5 PHYSICIAN GEOFFREY T VISIT S GROUP 15 MINUTES OFFICE 11920 [facility] 4 4 GEOFFREY GEOFFREY T VISIT 25 MINUTES EMERGENCY 63990 ALF[facility]IS ALFARIS DEPT 4 4 MOH MOH VISIT HIGH SEVERITY& THREAT FUNJ OFFICE 87170 [facility] OUTPATIEN 3 3 JAM JAM T VISIT 25 MINUTES OFFICE 17663 [facility] OUTPATIEN 3 3 NECK T VISIT SURGERY 25 ASSOC MINUTES [facility] ST - 3 3 NICK OUTPATIEN FT T [facility] OFFICE 20508 SHELBY RYAN OUTPATIEN 3 3 JAM JAM T VISIT 15 MINUTES OFFICE 47545 [facility] & DOMET SEK[facility] CONSULTAT 3 3 NECK ION SURGERY NEW/ESTAB ASSOC PATIENT 60 MIN OFFICE 21006 ELSI MORELAND OUTPATIEN 3 3 T VISIT 10 MINUTES OFFICE 47137 [facility]INA [facility]ANTA OUTPATIEN 3 3 GEOFFREY GEOFFREY T VISIT 15 MINUTES OFFICE 98488 FULLER JUNG FULLER JUNG OUTPATIEN 3 3 T VISIT 15 MINUTES OFFICE 49827 NEULopez QUAN OUTPATIEN 3 3 T VISIT 15 MINUTES OFFICE 87789 PETER GREEN OUTPATIEN 3 3 III MARY JO III MARY JO T NEW 30 MINUTES Emergency CHEKO LOVE MD (ER) 3 10:32 3 11:00 [facility] OFFICE 45629 SHELBY SHELBY OUTPATIEN 3 3 JENNI JAM T VISIT 25 MINUTES [facility]OSPITAL [facility] - 3 3 [facility] OUTPATIEN INC T EMERGENCY 65656 [facility] 3 3 [facility] DEPARTMEN INC T VISIT MODERATE SEVERITY EMERGENCY 85166 GUZMAN LOVE 3 3 EMERGENCY [facility]ARRELL [facility] SERVICES T VISIT HIGH/URGE NT SEVERITY PERIODIC 37888 ARINA SANTA PREVENTIV 2 2 GEOFFREY GEOFFREY E MED EST PATIENT 18-39 YRS [facility]PITAL [facility] - 1 1 [facility] OUTPATIEN INC T HOSPITAL [facility] 1 1 [facility] OUTPATIEN INC T OFFICE 28350 [facility] 1 1 [facility] T VISIT CLINIC OF 15 [place] MINUTES OFFICE 87795 [facility] 1 1 [facility] T VISIT [facility]IN[facility] 15 [place] MINUTES [facility]PITAL [facility] - 1 1 [facility] INPATIENT INC OFFICE 33502 [facility] 1 [facility] T [facility]ISIT [facility]IN[facility] 15 [place] MINUTES OFFICE 72894 [facility] 1 1 [facility] T VISIT [facility]IN[facility] 15 [place] MINUTES OFFICE 74910 [facility] 0 0 [facility] T VISIT [facility]IN[facility] 15 [place] MINUTES OFFICE 50951 [facility] 0 [facility] T VISIT [facility]IN[facility] 15 [place] MINUTES OFFICE 94025 [facility] 0 0 [facility] T VISIT [facility] [address] - 0 0 NICK OUTPATIEN FT T [facility] OFFICE 23102 ST OUTPATIEN 0 0 NICK T VISIT FT 10 MARCI MIN[address]ES OFFICE [address] [facility] OUTPATIEN 0 0 HOSPITAL T VISIT [facility] [email or web address] [address] [facility] [address] [facility] 24589 EMERGENCY SHARIF, 0 0 CARE FABRIZIO BERMUDEZMEN PHYS T VISIT [facility] HIGH/URGE [place] NT SEVERITY OFFICE 50294 [facility] OUTPATIEN 0 0 NICK JUDIE C T NEW 45 MINUTES PHYSICIAN S OFFICE 72[address] [facility] OUTPATIEN 0 0 HOSPITAL T VISIT [facility] [email or web address]] 10 [address] [facility] 93646 EMERGENCY GAUTRAUD, 0 0 CARE NGUYỄN BERMUDEZMEN PHYS T VISIT [facility] HIGH/URGE [place] NT SEVERITY [facility]OSP[facility] 25285 TRACY ALVAREZ YOUNG, OUTPATIEN 0 0 PRIMARY N[facility]OLAS T VISIT CARE 25 CENTERINC MINUTES
--- OUTSIDE RECORDS SUMMARY | 2017-06-10 01:37 | External Medical Summary Rpt | CCD ---
Author Author , JACK Knowles JACK Address Unknown Phone [email or web address] Care Team Providers Care Fruit And Vegetable Packer Name Role Phone A Randall العلي MD [facility], [place] Unavailable Unavailable Randall العلي MD [facility] ALFARIS MOH, ALFARIS Unavailable Unavailable MOH ALFARIS MOH, ALFARIS Unavailable Unavailable [facility] Unavailable Un[facility], [facility]ANT[facility] GEOFFREY, SANTA Unavailable Unavailable GEOFFREY SANTA GEOFFREY, SANTA Unavailable Unavailable GEOFFREY MICHA SANTA J, Unavailable Unavailable MELISSA [facility], Unavailable [facility] Unavailable Unavailable [facility], [facility] Unavailable [facility]available [facility], [facility] Unavailable Unavailable [facility] Unavailable Unavailable PHYSICIANS, [facility] GABRIEL FRANCO, Unavailable Unavailable GABRIEL FRANCO DMITRIY ALBERTO, Unavailable Unavailable DMITRIY ALBERTO DMITRIY ALBERTO, Unavailable Unavailable DMITRIY ALBERTO [facility], Unavailable Unavailable [facility], Unavailable Unavailable [facility] DOMET SEKOU, DOMET SEKOU Unavailable Unavailable DUE THO, DUE THO Unavailable Unavailable [facility], [facility] Unavailable Unavailable ELLEMAN SEKOU, ELLEMAN Unavailable Unavailable SEKOU CELESTE AND, CELESTE Unavailable Unavailable AND FABRIZIO SHARIF, Unavailable Unavailable FABRIZIO SHARIF GAINEY Unavailable Unavailable NGUYỄN EDWARDS, Unavailable Unavailable NGUYỄN EDWARDS DEN, NORMA DEN Unavailable Unavailable FULLER JUNG, FULLER JUNG Unavailable Unavailable FULLER JUNG, FULLER JUNG Unavailable Unavailable GREFER SEKOU, GREFER Unavailable Unavailable SEKOU HAGENSCHNEIDER ASHWINI, Unavailable Unavailable HAGENSCHNEIDER ASHWINI MIRELLA BRUCE, MIRELLA Unavailable Unavailable BR[facility] Unavailable Unavailable [facility]MM[facility]ITY, [facility] Unavailable Unavailable INC, [facility] AL ERA, AL Unavailable Unavailable ERA REA ALENA, Unavailable Unavailable REA ALENA [facility] Unavailable Unavailable [facility], [facility] CALZADA MERLY, CALZADA MERLY Unavailable Unavailable CALZADA MERLY, CALZADA MERLY Unavailable Unavailable NAVYA CALZADA, Unavailable Unavailable NAVYA CALZADA [facility], Unavailable Unavailable [facility] HOBLITZEL ERA, Unavailable Unavailable [facility], [facility] KRUSLING EDW, Unavailable Unavailable KRUSLING EDW KUMLER III MARY JO, Unavailable Unavailable KUMLER III MARY JO [facility] Unavailable Unavailable [facility], [facility] Unavailable Unavailable [facility], [facility] & Unavailable Unavailable [facility] Un[facility], [facility] Un[facility] Unavailable Unavailable COMMUNITY ACT, [facility] BRYANT, MARCELO, BRYANT, MARCELO Unavailable Unavailable [facility], Unavailable Unavailable [facility] Unavailable Unavailable SERVICES, [facility] GRACE BUNCH, Unavailable Unavailable GRACE BUNCH [facility] Unavailable Unavailable ASSOCIAT, [facility], Unavailable Unavailable [facility], Unavailable Unavailable [facility] LINETTE AVELINA, LINETTE Unavailable Unavailable AVELINA [facility] Unavailable Unavailable [facility], [facility] LEYVA GERTRUDE, LEYVA GERTRUDE Unavailable Unavailable SHELBY JAM, SHELBY Unavailable Unavailable JAM SHELBY JAM, SHELBY Unavailable Unavailable JUDIE FALL, Unavailable Unavailable JUDIE [facility]ERKOWITZ [facility] Unavailable Unavailable & ORTHO, [facility] Unavailable Unavailable & ORTHO, [facility] NEUS AVELINA, NEUS AVELINA Unavailable Unavailable NEUS AVELINA, NEUS AVELINA Unavailable Unavailable O'MANDY JARRELL, O'MANDY Unavailable Unavailable JARRELL [facility], [facility] Unavailable Unavailable LABS, LLC [facility], Unavailable Unavailable PLLC, [facility] Unavailable Unavailable LAB, [facility] Unavailable Unavailable LAB, [facility] PICKLESIMER JR KURT, Unavailable Unavailable PICKLESIMER JR KURT PUND CHR, PUND CHR Unavailable Unavailable [facility], Unavailable Unavailable [facility], Unavailable Unavailable [facility] Unavailable Unavailable [facility], [facility] Unavailable Un[facility] Unavailable Unavailable DEPARTAK, [facility] Unavailable Unavailable DEPARTAK, [facility] DE[facility] JA GRE, JA Unavailable Unavailable GRE TRACY JAM, TRACY Unavailable Unavailable JAM SCHNITZLER MONICO, Unavailable Unavailable SCHNITZLER MONICO SCHNITZLER MONICO, Unavailable Unavailable SCHNITZLER MONICO SCIFRES, SCIFRES Unavailable Unavailable SCIFRES, SCIFRES Unavailable Unavailable [facility] Unavailable Unavailable [facility], [facility] Unavailable Unavailable EMERGENCY [facility], [facility] Unavailable Unavailable [facility] Unavailable Unavailable DECISION SUPPORT MANAGER [facility] Unavailable Unavailable [facility] STAPLES KER, STAPLES KER Unavailable Unavailable MELVIN BALJIT, MELVIN Unavailable Unavailable BALJIT [facility] Unavailable Unavailable GASTROENTEROLOGY A, [facility] # Unavailable Unavailable [id number], [facility] # [id number] [id number], Unavailable Unavailable [facility] # [id number] [id number] # Unavailable Unavailable [id number], [id number] # [id number] [facility], Unavailable Unavailable [facility] Unavailable Unavailable OF [place], [facility] [place] Perry, SEVERIANO Perry Unavailable Unavailable NICKOLAS LARA, Unavailable Unavailable NICKOLAS LARA ANTHONY, Unavailable Unavailable MARIELENA QUINTEROS Purpose Continuity of Care Document - 03-13-2009 through 2016 Problems Code Diagnosis DOS Provider Status [id number] HORDEOLUM 04-16-2017 SCIFRES EXTERNUM RIGHT LOWER EYELID K529 NONINFECTIV 02-28-2017 [facility] ITIS & COLITIS UNS K029 DENTAL 08-23-2016 [facility] UNSPECIFIED INC K044 ACUTE 08-23-2016 [facility], PERIODONTIT PLLC IS OF PULPAL ORIGIN K0500 ACUTE 08-23-2016 [facility] PLAQUE INC INDUCED Z720 TOBACCO USE 08-23-2016 [facility] INC R102 PELVIC AND 06-05-2016 [facility] PERINEAL PHYSICIANS PAIN GROUP K5090 CROHNS 06-04-2016 [facility] DISEASE UNS GASTROENTER WITHOUT OLOGY A COMPLICATIO NS U61956 CROHNS 06-04-2016 ST DISEASE UNS [facility] CTR DECISION SUPPORT MANAGER W/UNSPECIFI ST ED COMPLICATIO NS R197 DIARRHEA 06-04-2016 [facility] UNSPECIFIED GASTROENTER OLOGY A R634 ABNORMAL 06-04-2016 [facility] OLOGY A [id number] REGULAR 06-03-2016 CAL[facility]ADA MERLY ASTIGMATISM BILATERAL K5289 OTH SPEC 05-18-2016 [facility] NONINFECTIV GASTROENTER E OLOGY A GASTROENTER ITIS & COLITIS R1084 GENERALIZED 05-18-2016 ANESTHESIA ABDOMINAL GROUP PAIN PRACTICE Z008 ENCOUNTER 05-18-2016 [facility] FOR OTHER ASSOCIATES GENERAL [facility] EXAMINATION R1030 LOWER 05-17-2016 [facility] ABDOMINAL GASTROENTER PAIN OLOGY A UNSPECIFIED R12 HEARTBURN 05-17-2016 [facility] GASTROENTER OLOGY A N771 VAGINITIS 05-14-2016 [facility] VULVIT & N EMERGENCY VULVOVAGINI PHYSI T IN DZ CLASS ELSW R1031 RIGHT LOWER [facility] R109 UNSPECIFIED 05-14-[facility] A[facility] PAIN ASSOCIAT R112 NAUSEA WITH 05-14-2016 [facility] UNSPECIFIED ASSOCIAT V677YXC COMP 05-14-2016 [facility] SURGICAL & N EMERGENCY MEDICAL PHYSI CARE UNS INITIAL ENCNTR L0291 CUTANEOUS 08-06-2015 [facility] ABSCESS [facility] UNSPECIFIED HOLDINGS K06505 ENCOUNTER 07-30-2015 [facility], HRIS ADMINISTRATOR EXAM LLC GENERAL RTN W/O ABNORMAL FIND 93389 GENERALIZED 03-20-2015 [facility] ANXIETY PRIMARY DISORDER CARE CENTER V790 SCREENING 03-20-2015 [facility] FOR PRIMARY DEPRESSION CARE CENTER 76532 CLOS 03-19-2015 [facility] FRACTURE H ORTHOPAE MID/PROXIMA L PHALANX/PHA LANG HAND 7295 PAIN IN 03-08-2015 [facility] SOFT N EMERGENCY TISSUES OF PHYS LIMB 97969 PAIN IN 02-22-2015 [facility] JOINT, HAND H ORTHOPAE V4589 OTHER 02-22-2015 ST POSTSURGICA NICK L STATUS MED CTR DECISION SUPPORT MANAGER OTHER ST V571 OTHER 02-22-2015 ST PHYSICAL NICK THERAPY MED CTR DECISION SUPPORT MANAGER ST 6929 CONTACT 02-13-2015 [facility] ALV[facility]Z DERMATITIS& PRIMARY OTHER CARE CENTER ECZEMA DUE UNSPEC CAUSE V851 BODY MASS 02-13-2015 [facility] INDEX PRIMARY BETWEEN CARE CENTER 19-24 ADULT 84292 PAIN IN 02-11-2015 RADI[facility] JOINT, ASSOCIATES ANKLE AND OF [facility] FOOT 60795 CLOSED 02-11-2015 [facility] FRACTURE [facility]ERGENCY UNSPEC PHYSICIANS PHALANX/PHA LANGES HAND 47736 UNSPECIFIED 02-11-2015 [facility] SITE OF EMERGENCY ANKLE PHYSICIANS SPRAIN AND STRAIN 9599 INJURY 02-11-2015 RADIOLOGY OTHER AND ASSOCIATES UNSPECIFIED OF [facility] UNSPECIFIED SITE 23586 LUMP OR 10-09-2014 [facility] MASS IN PHYSICIANS BREAST GROUP 07349 OTHER 10-09-2014 [facility] SPECIFIED [facility] DISORDERS INC OF [place] 27757 OTHER 10-09-2014 [facility] ABNORMAL [facility] FINDING [facility]AGING ASS RADIOLOGICA L EXAM [place] 19068 REGULAR 03-21-2014 [facility] MERLY ASTIGMATISM 6201 CORPUS 03-16-2014 [facility] LUTEUM CYST OR HEMATOMA 6259 UNSPEC 03-16-2014 [facility] SYMPTOM ASSOC W/FEMALE GENITAL ORGANS 75276 ABDOMINAL 03-16-2014 [facility] PAIN, LEFT LOWER QUADRANT 6202 OTHER AND 03-12-2014 [place] UNSPECIFIED MEDICAL OVARIAN IMAGING ASS CYST 7242 LUMBAGO 03-12-2014 [facility] MOH 7245 UNSPECIFIED 03-12-2014 [place] BACKACHE MEDICAL [facility]ING ASS 7880 RENAL COLIC 03-12-2014 [facility] 66014 HEAD 03-12-2014 [place] INJURY, MEDICAL UNSPECIFIED IMAGING ASS 4618 OTHER ACUTE 08-08-2013 SHELBY ARTEAGA SINUSITIS 7840 HEADACHE 08-08-2013 [facility] ARTEAGA 2359 NEOPLASM 07-18-2013 [facility] UNCERTAIN SURGERY BEHAVIOR ASSOC OTH&UNSPEC RESP ORGN 4710 POLYP OF 07-18-2013 [facility] NASAL SURGERY CAVITY ASSOC 4719 UNSPECIFIED 07-18-2013 SCHNITZLER NASAL MONICO POLYP 7291 UNSPECIFIED 07-11-2013 [facility] MYALGIA SURGERY AND ASSOC MYOSITIS 4739 UNSPECIFIED 07-04-2013 SINUSITIS [facility] 16903 LOSS OF 06-28-2013 [facility] 48683 HORDEOLUM 06-23-2013 CAL[facility] MERLY EXTERNUM 5990 URINARY 06-16-2013 [facility] TRACT INFECTION SITE NOT SPECIFIED 53162 HEMATURIA 06-16-2013 [facility] UNSPECIFIED 1330 SCABIES 04-24-2013 FULLER JUNG 6989 UNSPECIFIED 04-24-2013 [facility] JUNG PRURITIC DISORDER 70182 EFFUSION OF 01-11-2013 [facility] AN[facility]LE AND PROSTHETICS FOOT JOINT & ORTHO 09585 OTHER ANKLE 01-11-2013 [facility] SPRAIN AND PROSTHETICS STRAIN & ORTHO 58798 CLOSED 01-06-2013 SHELBY ARTEAGA FRACTURE OF UNSPECIFIED PART OF TIBIA 8242 CLOSED 01-06-2013 DMITRIY FRACTURE OF ALBERTO LATERAL MALLEOLUS 8248 UNSPECIFIED 01-06-2013 [facility] CLOSED EMERGENCY FRACTURE OF SERVICES ANKLE 9597 INJURY 01-06-2013 DMITRIY OTHER&UNSPE ALBERTO CIFIED KNEE LEG ANKLE&FOOT V7231 ROUTINE 05-17-2012 [facility] AL EXAMINATION 3671 MYOPIA 04-29-2011 [facility] 6262 EXCESSIVE 03-09-2011 [facility] MENSTRU[facility] [place] N V242 ROUTINE 11-20-2010 PATHOLOGY & CYTOLOGY FOLLOW-UP LAB V252 STERILIZATI 10-11-2010 [facility] ON [facility] [place] V3000 SINGLE 10-11-2010 A C SEVERIANO LIVE[facility]ORN [facility] W/O 650 NORMAL 10-10-2010 WOMEN'S DELIVERY [facility] [place] 29315 OLIGOHYDRAM 10-10-2010 WOMEN'S NIOS, HEALTH DELIVERED CLINIC OF [place] 30404 OTH&UNS CRD 10-10-2010 [facility]PR[facility]IN[facility] OF COMP L&D [place] DELIV V270 OUTCOME OF 10-10-2010 WOMEN'S DELIVERY HEALTH SINGLE CLINIC OF LIVEBORN [place] 80351 OLIGOHYDRAM 10-09-2010 [facility], [facility] ANTEPARTUM CLINIC OF [place] V221 SUPERVISION 10-02-2010 WOMEN'S OF OTHER HEALTH NORMAL CLINIC OF [place] 35686 MATERNAL RX 2010 WOMEN'S DEPEND HEALTH COMPL PG CLINIC OF CB/PP UNS [place] EOC 6110 INFLAMMATOR 08-04-2010 COMBINED [place] [address] PLACENTA 07-23-2010 WOMEN'S PREVIA HEALTH WITHOUT CLINIC OF HEMORRHAGE [place] ANTEPARTUM 76870 POOR 07-23-2010 WOMEN'S GROWTH MGMT HEALTH MOTH CLINIC OF ANTPRTM [place] COND/COMP V653 DIETARY 06-19-2010 [facility] SURVEILLANC CO HEALTH E AND DEPARTME COUNSELING V6540 COUNSELING 06-19-2010 ROMA NOS CO HEALTH DEPARTME V283 ENCOUNTER 06-05-2010 WOMEN'S ROUTINE HEALTH SCREEN CLINIC OF MALFORMATIO [place] N ULTRASONIC V7242 03-26-2010 [facility] EXAM[facility]ATION [facility] OR TEST S POSITIVE RESULT 96323 OTHER 03-24-2010 WOMEN'S SPECIFED HEALTH COMPLICATIO CLINIC OF N NADINE ANTEPARTUM PLLC 87641 PAP SMER 03-21-2010 PATHOLOGY & CERV CYTOLOGY W/ATYPICAL LAB SQUAMOUS CELLS UNDET 78086 CERV HIGH 03-21-2010 PATHOLOGY & RISK HUMAN CYTOLOGY PAPILLOMAVI LAB LEATHA DNA TEST POS V745 SCREENING 03-21-2010 PATHOLOGY & EXAMINATION CYTOLOGY FOR LAB VENEREAL DISEASE 97192 OTHER 03-06-2010 ST POSTOPERATI NICK VE FT MARCI INFECTION NEC V6709 FOLLOW-UP 03-06-2010 ST EXAMINATION NICK FOLLOWING FT MARCI OTHER SURGERY 71100 MASTODYNIA 01-15-2010 [facility] 6100 SOLITARY 10-03-2009 [place] RADIOLOGY [place] ASSOCIAT 69058 OTHER SIGN 10-03-2009 [facility] AND SYMPTOM PRIMARY IN BREAST CARE CENTERINC Medications Na ND Rx Da Fi Fi [...] PH ZA 61 17 17 84 AR WI 5 05 MA IN CY E 10 [...] 1 09 PH CE AR TA MA AL CY NO PH #1 EN 56 9 5- 32 5 HY 53 12 01 [address] 74 -2 -2 .0 00 S ti OC 60 5- 7- 00 01 PH ve OD 10 20 20 27 AR ON 90 16 17 93 MA -A 1 76 CY CE TA #0 AL 23 NO 32 PH EN 5- 32 5 AL 00 12 01 20 10 00 CV [...] 20 3- 9- 00 RE 44 ve WI 05 [address] AM [...] 20 3- 3- 00 RE 44 ve WI 05 [address] AM [...] 1 60 30 CL 23 CL Ac WI 74 -2 -2 .0 IN 52 AR [...] 10 10 DE TA 1 PH RE AL AR K N- MA J CA CY FF 50 -3 25 -4 0 BU 00 09 09 40 10 RE 68 HASSAN Ac TA 14 -0 -0 .0 YN 53 RP ti LB 31 9- 9- 00 OL 39 EL ve -A 78 20 20 DS CE 70 10 10 GE TA 1 PH RA AL AR LD N- MA R CA CY FF 50 -3 25 -4 0 WI 65 08 08 30 30 RE 68 [...] 10 10 DE TA 1 PH RE AL AR K N- MA J CA CY [...] .0 LG 13 RL ti 10 9- 9 00 RE 82 EY ve 74 20 20 EN 8 90 10 10 S HE 5 #7 ID 34 I 6 C # 73 46 HARDY 53 05 05 0 14 7 WA 30 MU Ac LF 74 -1 -1 .0 LG 13 RL ti AM 60 9- 9 RE 82 EY ve ET 27 20 20 EN 9 HO 20 10 10 S HE XA 5 #7 ID ZO 34 I LE 6 C -T # MP 73 46 DS TA BL ET 00 05 05 0 15 2 WA 30 EV Ac 59 -1 -1 .0 LG 12 AN ti 10 RE 92 S ve 34 20 20 EN 5 JA 90 10 10 S ME 5 #7 S 34 L 6 # 73 46 00 05 05 0 30 5 WA 30 MU Ac 59 -1 -1 .0 LG 11 RL ti 10 3- 3 RE 17 EY ve 74 20 20 EN 0 90 10 10 S HE 5 #7 ID 34 I 6 C # 73 46 HARDY 53 05 05 0 20 10 WA 30 MU Ac LF 74 -1 -1 .0 LG 11 RL ti AM 60 2 3 RE 17 EY ve ET 27 20 20 EN 1 HO 20 10 10 S HE XA 5 #7 ID ZO 34 I LE 6 C -T # MP 73 46 DS TA BL ET 00 05 05 30 30 RE 68 NE Ac 78 -0 -1 .0 YN 07 US ti 11 4- 0- OL 10 ve [address] 30 10 10 EV 5 PH EN AR E MA CY 00 04 04 0 20 2 WA 30 GA Ac 59 -2 -2 .0 LG 03 UT ti 10 RE 64 RA ve 74 20 20 [...] 5 PH EN AR E MA CY WI 37 02 02 00 56 28 RE 67 NE Ac IL 00 -0 -1 .0 YN 68 US ti OS 00 2- 1- OL 07 ve EC [address] 50 10 10 EV OT 3 PH EN C AR E 20 MA .6 CY MG TA BL ET 00 02 02 00 30 30 RE 67 NE Ac 78 -0 -1 .0 YN 68 US ti 11 OL 05 ve [address] 30 10 10 EV 5 PH EN AR E MA CY WI 37 01 01 00 14 14 WA 29 HE Ac IL 00 -1 -2 .0 LG 56 RF ti OS 00 RE 40 EL ve EC 45 20 20 EN 5 50 10 10 # RO OT 2 B C 07 F 20 34 .6 6 MG TA BL ET WI 00 01 01 00 10 2 WA 29 HE Ac OM 78 -1 -2 .0 LG 56 RF ti ET 11 RE 40 EL ve HASSAN 83 20 20 EN 6 ZI 00 10 10 # RO NE 1 B 07 F 25 34 6 MG TA BL ET Procedures Procedure DOS Code Location Performer Comment COLLECTIO [address] N VENOUS 6 [facility] BLOOD MED CTR MED CTR VENIPUNCT DECISION SUPPORT MANAGER ST DECISION SUPPORT MANAGER ST URE COMPREHEN [address] SIVE 6 NICK NICK METABOLIC MED CTR MED CTR PANEL DECISION SUPPORT MANAGER ST DECISION SUPPORT MANAGER ST [address] HYDROXY 6 NICK NICK INCLUDES MED CTR MED CTR FRACTIONS DECISION SUPPORT MANAGER ST DECISION SUPPORT MANAGER ST IF PERFORMED BLOOD [address] COUNT 6 NICK NICK COMPLETE MED CTR MED CTR AUTO&AUTO DECISION SUPPORT MANAGER ST DECISION SUPPORT MANAGER ST DIFRNTL WBC HEPATITIS [address] B CORE 6 NICK NICK ANTIBODY MED CTR MED CTR HBCAB DECISION SUPPORT MANAGER ST DECISION SUPPORT MANAGER ST TOTAL OPHTH 70204 [facility] 6 XM&EVAL COMPRHNSV ESTAB PT 1/> H[facility] [address] [facility] DISCHARGE 6 NICK EDW DAY MANAGEMEN PHYSICIAN T 30 S MIN/< COLONOSCO 71333 [facility] PY 6 GRE W/BIOPSY GASTROENT SINGLE/MU EROLOGY A LTIPLE ANES 67961 ANESTHESI WICKELHAU LOWER 6 A GROUP S INTESTINE PRACTICE ENDOSCOPY DISTAL DUODENUM RADIOLOGI 85437 [facility]IOLOGY [facility] C EXAM 6 JAM CHEST 2 ASSOCIATE VIEWS S OF NOTH FRONTAL&L ATERAL SBSQ 34405 [facility] 6 ALENA CARE/DAY GASTROENT 25 EROLOGY A MINUTES SBSQ 90379 [facility]DAY 25 PHYSICIAN MINUTES S INITIAL 604[address] [facility] INPATIENT 6 ALENA CONSULT GASTROENT NEW/ESTAB EROLOGY A PT 80 MIN INITIAL 40847 [facility]/DAY 50 PHYSICIAN MINUTES S FINAL G9551 [facility] REPR ABD 6 ERA IMAG STS RADIOLOGY W/O ASSOCIAT INCIDNT FND LES NTD: FINAL G9637 [facility] REPORTS 6 ERA W/DOC RADIOLOGY 1/MORE ASSOCIAT DOSE REDUCTION TECH RADEX ABD 45441 [facility] COMPL 6 ERA AQT ABD RADIOLOGY W/S/E/D ASSOCIAT VIEWS [address] [place] [address] [facility] ABDOMEN & 6 ERA PELVIS RADIOLOGY W/CONTRAS ASSOCIAT T MATERIAL CULTURE 86083 [facility] BACTERIAL 5 NICKOLAS NICKOLAS ANY HOLDINGS HOLDINGS SOURCE ANAEROBIC ISO&ID CUL BACT 92905 [facility] ANAEROBIC 5 NICKOLAS NICKOLAS ADDL HOLDINGS HOLDINGS METHS DEFINITIV E EA ISOL CYTP C/V 51877 [facility], PICKLESIM AUTO THIN 5 LLC ER JR KURT LYR PREPJ SCR MNL RESCR PHYS RADEX 10444 [facility] DUE THO FINGR 5 LTH MINIMUM 2 ORTHOPAE VIEWS RADEX 82223 [place] [facility] HAND 5 EIDER ASHWINI MINIMUM 3 RADIOLOGY VIEWS ASSOCIAT RADEX 39642 [facility] DUE THO FINGR 5 LTH MINIMUM 2 ORTHOPAE VIEWS RADEX 95989 [facility] HOBLITZEL FINGR 5 LTH ERA MINIMUM 2 ORTHOPAE VIEWS FINGER L3933 ST ST ORTHOTIC 5 NICK NICK W/O MED CTR MED CTR JOINTS DECISION SUPPORT MANAGER ST DECISION SUPPORT MANAGER ST CUSTOM FABRICATE D RADEX 09073 [facility] DUE THO FINGR 5 LTH MINIMUM 2 ORTHOPAE VIEWS PRQ SKEL [address] FIXJ 5 NICK ROMERO PHLNGL MED CTR MED CTR SHFT FX DECISION SUPPORT MANAGER ST DECISION SUPPORT MANAGER ST PROX/MIDD LE PX/F/T INJ J0702 [facility] GORE DEN BETAMETHA 5 PRIMARY SONE CARE ACETATE & CENTER PHOSPHATE 3 MG THERAPEUT 24417 [facility] DEN IC 5 PRIMARY PROPHYLAC CARE TIC/DX CENTER INJECTION SUBQ/IM RADEX 75917 [facility] GREFER FINGR 5 LTH SEKOU MINIMUM 2 ORTHOPAE VIEWS RADEX 03029 RADI[facility] GABRIEL FINGR 5 FRANCO MINIMUM 2 ASSOCIATE VIEWS S OF NOTH RADEX 07052 RADIOLOGY GABRIEL ANKLE 5 FRANCO COMPLETE ASSOCIATE MINIMUM 3 S OF NOTH VIEWS US [place] [address]4960 [facility] UNI REAL 5 MEDICAL ALBERTO TIME IMAGING WITH ASS IMAGE COMPLETE OPHTH 79433 [facility] MEDICAL 4 XM&EVAL COMPRHNSV ESTAB PT 1/> [place] [address] ARINA SANTA TRANSVAGI [address] [place] [address] [facility] ABDOMEN & 4 MEDICAL ALBERTO PELVIS IMAGING W/O ASS CONTRAST MATERIAL RADEX 43429 [facility] SPINE 4 MEDICAL MEDICAL LUMBOSACR IMAGING IMAGING AL ASS [place] [address] [place] [address] [facility] HEAD/BRAI 4 MEDICAL ALBERTO N W/O IMAGING CONTRAST ASS MATERIAL NASAL/SIN 40553 HEAD & DOMET SEKOU US NDSC 3 NECK SURG W/BX SURGERY ASSOC POLYPECT/ DBRDMT SPX ANESTHESI 14581 [facility] MUNIZ A NOSE & 3 R MONICO R [place] [address] EDWARDS EDWARDS SURG 3 ALIVIA ALIVIA PATHOLOGY GROSS&SEKOU ROSCOPIC EXAM LOCM Q9967 ST ST 300-399 3 NICK ROMERO MG/ML FT FT IODINE MARCI [place] [address] LINETTE LINETTE MAXILLOFA 3 AVELINA AVELINA CIAL W/O & W/CONTRAS T MATERIAL BASIC 98924 [facility] METABOLIC 3 DIAGNOSTI DIAGNOSTI [place] [address] [facility] THYROID 3 DIAGNOSTI DIAGNOSTI STIMULATI CS CS NG HORMONE TSH BLOOD 13060 [facility] COUNT 3 DIAGNOSTI DIAGNOSTI COMPLETE CS CS AUTO&AUTO DIFRNTL WBC URNLS DIP 77080 ARINA SANTA 3 GEOFFREY GEOFFREY STICK/TAB LET RGNT NON-AUTO W/O MICRSCP INJECTION J1040 NEUS AVELINA NEUS AVELINA 3 METHYLPRE DNISOLONE ACETATE 80 MG THERAPEUT 87738 NEUS AVELINA NEUS AVELINA IC 3 PROPHYLAC TIC/DX INJECTION SUBQ/IM ANKLE L4350 NATIONAL NATIONAL CONTROL 3 PROSTHETI PROSTHETI ORTHOSIS CS & CS & STIRRUP ORTHO ORTHO STYL RIGID PREFAB CRTCHS E0114 [employer] UNDARM 3 OTH THAN WOOD PAIR PAD TIP&HNDGR IP RADEX 41341 PATTY BRAMBILA ANKLE 3 [facility] COMPLETE INC INC MINIMUM 3 VIEWS CLTX DSTL 14953 GUZMAN O'MANDY FIBULAR 3 EMERGENCY JARRELL FX LAT SERVICES MALLS W/O MANJ URNLS DIP 81158 ARINA SANTA 2 GEOFFREY GEOFFREY STICK/TAB LET RGNT NON-AUTO W/O MICRSCP NONEMERG A0120 LKLP LICKING TRNSPRT: 1 [facility] ACT AREA/OT SYS OPHTH 67055 TEX BUSHNES [facility] [place] 1 VISION XM&EVAL COMPRHNSV ESTAB PT 1/> NONEMERG A0120 LKLP BRYANT TRNSPRT: 1 [facility] [place] OMGravity R&DITY RIN AREA/OT SYS NONEMERG A0120 LKLP BRYANT TRNSPRT: 1 [facility] [place] AREA/OT SYS NONEMERG A0120 [facility] OMMUNITY MTN AREA/[place] [address] PATTY PATTY INFUSION 1 [facility] THERAPY INC [place] [address] CHIPPS GUZMAN SURG 1 JOSE & JUAN DAVID PATHOLOGY DUBILIER GROSS&SEKOU ROSCOPIC EXAM THERAPEUT 25356 PATTY BRAMBILA IC 1 [facility] INJECTION INC INC IV PUSH EACH NEW DRUG ENDOMETRI 6823 PATTY BRAMBILA AL 1 [facility] ABLATION INC INC HYSTEROSC 6812 PATTY BRAMBILA OPY 1 [facility] INC INC HYSTEROSC 00203 [facility] OPY [facility] ABLATION ANES 28757 [facility] HYSTEROSC 1 ANESTH BRUCE OPY&/HYST OF THE EROSALPIN BLUE GOGRAPHY W/BX GONADOTRO 36135 PATTY BRAMBILA PIN 1 [facility] CHORIONIC INC INC QUALITATI VE BLOOD 74398 PATTY BRAMBILA COUNT 1 [facility] COMPLETE INC INC AUTO&AUTO DIFRNTL WBC NONEMERG A0120 LKLP BRYANT TRNSPRT: 1 [facility] [place] [facility] OMMUNITY MTN AREA/OTH SYS NONEMERG A0120 LKLP BRYANT TRNSPRT: 1 [facility] [place] [facility] OMMUNITY MTN AREA/OTH SYS NONEMERG A0120 LKLP BRYANT TRNSPRT: 1 [facility] [place] [facility] OMMUNITY MTN AREA/OTH SYS NONEMERG A0120 LKLP BRYANT TRNSPRT: 1 [facility] [facility] OMMUNITY MTN AREA/OTH SYS NONEMERG A0120 LKLP BRYANT TRNSPRT: 1 [facility] OMMUNITY MTN AREA/OTH SYS NONEMERG A0120 LKLP BRYANT TRNSPRT: 1 [facility] [place] [facility] OMMUNITY MTN AREA/OTH SYS NONEMERG A0120 LKLP BRYANT TRNSPRT: 1 [facility] OMM[facility]ITY [facility] ARE[facility]/OT SYS CYTP C/V 31330 PATHOLOGY PATHOLOGY AUTO THIN 1 & & LYR CYTOLOGY CYTOLOGY PREPJ SCR LAB LAB MNL RESCR PHYS NONEMERG A0120 [facility] TRNSPRT: 1 [facility] [place] [facility]/OT SYS NONEMERG A0120 [facility] TRNSPRT[facility] 1 [facility] [facility]OT SYS NONEMERG A0120 [facility] TRNSPRT: 1 [facility] 41151 Orlando Perry DISCHARGE 1 SEVERIAN[facility] FERRELL DAY PSC MANAGEMEN T 30 MIN/< 1ST 75915 Orlando Perry HOSP/HUNG 1 SEVERIANO FERRELL [facility] PSC CENTER CARE PER DAY NML NB [facility] 6639 PATTY BRAMBILA BILATERAL 1 [facility] INC INC DESTRUC/O CCLUSION FALLOPIAN TUBES ANES IPER 91516 [facility] LEYVA GERTRUDE LWR ABD 1 ANESTH W/LAPS OF THE TUBAL BLUE LIGATION/ TRANSECT LIG/TRNSX 34738 [facility] J FLP [facility] TUBE [facility] OF ABDL/VAG DENISE POSTPARTU M SPX VAGINAL 74521 [facility] DELIVERY 1 [facility] ONLY CLINIC OF [place] NEURAXIAL 24873 [facility] MELVIN LABOR 1 ANESTH BALJIT ANALG/ANE OF THE S PLND BLUE VAGINAL DELIVERY OTHER 7359 PATTY BRAMBILA MANUALLY 1 [facility] ASSISTED INC [place]ERY [place] PREG 23603 [facility] UTERUS 1 [facility] REAL TIME CLINIC OF F/U [place] TRNSABDL PER FETUS 48936 [facility] BIOPHYSIC 1 [facility] AL CLIN[facility] OF PROFILE DENISE W/O NON-STRES S TESTING DOPPLER 53298 [facility] VELOCIMET 1 [facility] RY CLINIC OF UMBILICAL [place] ARTERY NONEMERG A0120 LKLP BRYANT TRNSPRT: 1 [facility] OMMUNITY MTN AREA/OTH SYS CUL BACT 47349 COMBINED COMBINED XCPT 1 PHYSICIAN PHYSICIAN URINE S LA S LA BLOOD/STO OL AEROBIC ISOL NONEMERG A0120 [facility] 1 [facility] [place] [facility] OMMUNITY MTN AREA/OTH SYS NONEMERG A0120 [facility]: 0 [facility] [place] [facility] OMMUNITY MTN AREA/OTH SYS NONEMERG A0120 [facility]: 0 [facility] [place] [facility] OMMUNITY MTN AREA/OTH SYS CUL BACT 65561 COMBINED COMBINED XCPT 0 PHYSICIAN PHYSICIAN URINE S LA S LA BLOOD/STO OL AEROBIC ISOL NONEMERG A0120 [facility]: 0 [facility] [place] [facility] OMMUNITY MTN AREA/OTH SYS 97916 [facility] BIOP[facility]YSIC 0 [facility] OF PROFILE DENISE W/O NON-STRES S TESTING DOPPLER 73746 [facility] VELOCIMET 0 [facility] UMBILICAL [place]ERY [place] PREG 46660 [facility] UTERUS 0 [facility] REAL TIME CLINIC OF F/U [place] TRNSABDL PER FETUS NONEMERG A0120 [facility] TRNSPRT: 0 [facility] [place] [facility] OMMUNITY MTN AREA/OTH SYS NONEMERG A0120 [facility] TRNSPRT: 0 [facility] [place] [facility] OMMUNITY MTN AREA/OTH SYS MEDICAL 32371 ROMA BRANDON NUTRITION 0 [facility] ASS[facility]&IVN DEPARTME DEPARTME TJ INDIV EACH 15 AL NONEMERG A0120 [facility] TR[facility]: 0 [facility] [place] [facility] OMMUNITY MTN AREA/OTH SYS NONEMERG A0120 [facility] TRNSPRT: 0 [facility] [place] [facility] OMMUNITY MTN AREA/OTH SYS [place] PREG 89610 [facility] UTERUS 0 [facility] AFTER 1ST CLINIC OF TRIMEST [place]ISE GESTATION NONEMERG A0120 LK[facility] BRYANT TRNSPRT: 0 [facility] [place] [facility] OMMUNITY MTN AREA/OTH SYS NONEMERG A0120 LK[facility] BRYANT TRNSPRT: 0 [facility] [place] [facility] OMMUNITY MTN AREA/OTH SYS NONEMERG A0120 LK[facility] BRYANT TRNSPRT: 0 [facility] [place] [facility] OMMUNITY MTN AREA/OTH SYS NONEMERG A0120 LK[facility] BRYANT TRNSPRT: 0 [facility] [place] [facility] OMMUNITY MTN AREA/OTH SYS NONEMERG A0120 LKLP BRYANT TRNSPRT: 0 [facility] OMMUNITY MTN AREA/[place] [address] [employer] MEDTOX LEAD 0 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 IES [place]ES [place] PREG 56209 [facility], UTERUS 0 [facility] J REAL TIME CLINIC OF W/IMAGE DCMTN [place] [employer] MUTATION 30709 MOLECULAR MOLECULAR ID 0 ENZYMATIC PATHOLOGY PATHOLOGY LAB NETW LAB NETW LIG/PRIME R XTN 1 SGM EA CYTP 74834 PATHOLOGY PATHOLOGY CERVICAL/ 0 & & VAGINAL CYTOLOGY CYTOLOGY REQ LAB LAB INTERP PHYSICIAN CYTP C/V 01790 PATHOLOGY PATHOLOGY AUTO THIN 0 & & LYR CYTOLOGY CYTOLOGY PREPJ SCR LAB LAB MNL RESCR PHYS IADNA 49932 PATHOLOGY PATHOLOGY CHLAMYDIA 0 & & CYTOLOGY CYTOLOGY TRACHOMAT LAB LAB IS AMPLIFIED PROBE TQ IADNA 31293 PATHOLOGY PATHOLOGY NEISSERIA 0 & & CYTOLOGY CYTOLOGY GONORRHOE LAB LAB AE AMPLIFIED PROBE TQ IADNA 02650 PATHOLOGY PATHOLOGY PAPILLOMA 0 & & VIRUS CYTOLOGY CYTOLOGY HUMAN LAB LAB AMPLIFIED PROBE TQ NONEMERG A0120 LK[facility] BRYANT TRNSPRT: 0 [facility] [place] [facility] OMMUNITY MTN AREA/OTH SYS NONEMERG A0120 LKLP BRYANT TRNSPRT: 0 [facility] [place] [facility] OMMUNITY MTN AREA/OTH SYS NONEMERG A0120 [facility] BRYANT TRNSPRT: 0 [facility] [place] [facility] OMMUNITY MTN AREA/OTH SYS NONEMERG A0120 [facility] TRNSPRT: 0 [facility] [place] [facility] OMMUNITY MTN AREA/OTH SYS NONEMERG A0120 [facility]: 0 [facility] OMMUNITY MT[place] ARE[place] [address] [facility] SURG 0 NICK PATHOLOGY MED CTR GROSS&SEKOU ROSCOPIC EXAM MASTOTOMY 16358 [facility], 0 NICK Pereira W/EXPLORA TION/AI PHYSICIAN ELISA Marroquin ABSCESS DEEP EXCISION 45615 [facility], LACTIFERO 0 NICK Pereira US DUCT FISTULA PHYSICIAN Lopez ANES 35142 INDEPENDE GAGAN INTEG 0 NT N, EXTREMITI ANESTHESI MARIELENA ES ANT OLOGIST TRUNK & PERINEUM NOS COLLECTIO 79034 [facility] YOU[facility], N VENOUS 0 PRIMARY NICKOLAS BLOOD CARE VENIPUNCT [facility] US BREAST 82281 [facility] REAL 0 EIDER ASHWINI TIME RADIOLOGY W/IMAGE ASSOCIAT DOCUMENTA TION CYTP 30805 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 SLCTV 0 Y & Y & CELL BIODIAGNO BIODIAGNO ENHANCEME STICS STICS NT INTERPJ XCPT C/[place] [address] 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 PROLACTIN 0 Y & Y & BIODIAGNO BIODIAGNO STICS STICS CYTP 72926 PATHOLOGY PATHOLOGY CERV/VAG 0 & & AUTO THIN CYTOLOGY CYTOLOGY LAYER LAB LAB PREP MNL SCREEN OPH 54086 CARMEN LINDQUIST 9 VISION NAVYA A XM&EVAL COMPRE NEW PT 1/> VST Encounters Encounter Start End Date Code Location Performer Type Date OFFICE 83705 [facility]RES OUTPATIEN 7 7 T VISIT 10 MINUTES OFFICE 68401 [facility] OUTPATIEN 7 7 [facility] T VISIT 5 INC [facility] PATT[facility] - 7 7 [facility] OUTPATIEN INC T HOSPITAL PATT[facility] - 6 6 [facility] OUTPATIEN INC T EMERGENCY 84886 [facility] 6 6 [facility] DEPARTMEN INC T VISIT LIMITED/M INOR PROB EMERGENCY 71686 BRYANT RAMIREZ 6 6 PHYSICIAN DEPARTMEN S, PLLC T VISIT MODERATE SEVERITY OFFICE 32459 [facility] OUTPATIEN 6 6 PHYSICIAN T VISIT S GROUP [address] [facility] OUT[facility] 6 6 ALENA T VISIT GASTROENT [address] [facility] - 6 6 NICK OUTPATIEN MED CTR T [facility] EMERGENCY 22241 [facility] DILIP DEPT 6 6 EMERGENCY SEKOU VISIT HIGH PHYSICIAN SEVERITY& S THREAT FUNJ EMERGENCY 08514 [facility] DEPT 6 6 JARRELL VISIT EMERGENCY HIGH PHYSI SEVERITY& THREAT [facility] OFFICE 31143 TRACY BRUCEE DEN OUTPATIEN 5 5 PRIMARY T VISIT CARE 25 CENTER MINUTES EMERGENCY 48806 [facility] 5 5 JARRELL DEPARTMEN EMERGENCY T VISIT PHYS MODERATE SEVERITY HOSPITAL ST - 5 5 NICK OUTPATIEN MED CTR T [facility] ST - 5 5 NICK OUTPATIEN MED CTR T [facility] OFFICE 94355 [facility] DUE THO OUTPATIEN 5 5 LTH T VISIT ORTHOPAE 15 MINUTES OFFICE 17645 TRAC[facility] CO GORE DEN OUTPATIEN 5 5 PRIMARY T VISIT CARE 15 CENTER MINUTES OFFICE 63219 [facility] GREFER OUTPATIEN 5 5 LTH SEKOU T NEW 30 ORTHOPAE MINUTES EMERGENCY 72765 NANCY ALONSO 5 5 EMERGENCY AND DEPARTMEN T VISIT PHYSICIAN HIGH/URGE S NT SEVERITY HOSPITAL PATTY - 5 5 [facility] OUTPATIEN INC T OFFICE 07791 [facility] ARINA OUTPATIEN 5 5 PHYSICIAN GEOFFREY T VISIT S GROUP 15 MINUTES OFFICE 83383 [facility] OUTPATIEN 4 4 GEOFFREY GEOFFREY T VISIT 25 MINUTES EMERGENCY 25450 ALFARIS ALFARIS DEPT 4 4 [facility] VISIT HIGH SEVERITY& THREAT FUNCJ OFFICE 80322 SHELBY RYAN OUTPATIEN 3 3 JAM JAM T VISIT 25 MINUTES OFFICE 17653 HEAD & DOMET SEKOU OUTPATIEN 3 3 NECK T VISIT SURGERY [address] - 3 3 NICK OUTPATIEN FT T MARCI OFFICE 56905 SHELBY RYAN OUTPATIEN 3 3 JAM JAM T VISIT 15 MINUTES OFFICE 45588 HEAD & DOMET SEKOU CONSULTAT 3 3 NECK ION SURGERY NEW/ESTAB ASSOC PATIENT 60 MIN OFFICE 78219 ELSI MORELAND OUTPATIEN 3 3 T VISIT 10 MINUTES OFFICE 35921 ARINA SANTA OUTPATIEN 3 3 GEOFFREY GEOFFREY T VISIT 15 MINUTES OFFICE 20848 FULLER JUNG FULLER JUNG OUTPATIEN 3 3 T VISIT 15 MINUTES OFFICE 23784 NEUS AVELINA OUTPATIEN 3 3 T VISIT 15 MINUTES OFFICE 05779 PETER GREEN OUTPATIEN 3 3 III MARY JO III MARY JO T NEW 30 MINUTES EMERGENCY 75193 GUZMAN LOVE 3 3 EMERGENCY JARRELL DEPARTMEN SERVICES T VISIT HIGH/URGE NT SEVERITY OFFICE 93215 SHELBY RYAN OUTPATIEN 3 3 JAM JAM T VISIT 25 MINUTES HOSPITAL P[facility] - 3 3 [facility] OUTPATIEN INC T EMERGENCY 37225 PATT[facility] 3 3 [facility] DEPARTMEN INC T VISIT MODERATE SEVERITY PERIODIC 58117 [facility] PREVENTIV 2 2 GEOFFREY GEOFFREY E MED EST PATIENT 18-39 YRS [facility] PATTY - 1 1 [facility] - 1 1 [facility] [place] [facility] OUTPATIEN INC T OFFICE 83041 [facility] 1 1 [facility] T VISIT CLINIC OF 15 DENISE MINUTES OFFICE 92357 [facility] OUT[facility] 1 1 [facility] T VISIT CLINIC OF 15 DENISE MINUTES HOSPITAL PATTY - 1 1 [facility] INPATIENT INC OFFICE 24916 [facility] OUTPATIEN 1 1 [facility] T VISIT CLINIC OF 15 DENISE MINUTES OFFICE 76189 [facility] OUTPATIEN 1 1 [facility] T VISIT CLINIC OF 15 DENISE MINUTES OFFICE 80144 [facility] OUTPAT[facility]EN 0 0 [facility] T VISIT CLINIC OF 15 DENISE MINUTES OFFICE 48945 [facility] 0 0 [facility] T VISIT CLINIC OF 15 DENISE MINUTES OFFICE 34976 [facility] 0 0 [facility] T VISIT CLINIC OF [address] [place] [address] - 0 0 NICK OUTPATIEN FT T MARCI OFFICE 22354 ST OUTPATIEN 0 0 NICK T VISIT FT 10 MARCI MINUTES [facility] ST [facility] [facility] OUTPATIEN 0 0 HOSPITAL T VISIT [facility] 10 MINUTES EMERGENCY 80696 EMERGENCY SHARIF, 0 0 CARE [facility]IO [facility] T VISIT [facility]/URGE [place] NT SEVERITY OFFICE [address] [facility] OUTPATIEN 0 0 NICK Pereira T [facility] 45 MINUTES PHYSICIAN S OFFICE 42936 [facility] 0 HOSPITAL T [facility]ISIT [address] [facility] - 0 0 [facility] EMERGENCY 12203 EMERGENCY GAUTRAUD, 0 0 CARE NGUYỄN [place] PHYS T VISIT [facility] HIGH/URGE [place] NT SEVERITY OFFICE 44797 [facility] 0 0 PRIMARY NICKOLAS T VISIT CARE [address] [place] [address] YOLI - [address] [facility]
--- OUTSIDE RECORDS SUMMARY | 2017-06-10 01:37 | External Medical Summary Rpt | CCD ---
Author Author , JACK Knowles JACK Address Unknown Phone [email or web address] Care Team Providers Care Chief Technician Name Role Phone A Randall العلي MD [...] ALBERTO [facility], Unavailable Unavailable [facility], Unavailable Unavailable [facility] DOMET SEKOU, DOMET SEKOU Unavailable Unavailable DUE THO, DUE THO Unavailable Unavailable [facility], [facility] Unavailable Unavailable ELLEMAN SEKOU, ELLEMAN Unavailable Unavailable SEKOU CELESTE AND, CELESET Unavailable Unavailable AND FABRIZIO SHARIF, Unavailable Unavailable FABRIZIO SHARIF GAINEY Unavailable Unavailable NGUYỄN EDWARDS, Unavailable Unavailable NGUYỄN EDWARDS DEN, NORMA DEN Unavailable Unavailable FULLER JUNG, FULLER JUNG Unavailable Unavailable FULLER JUNG, FULLER JUNG Unavailable Unavailable GREFER SEKOU, GREFER Unavailable Unavailable SEKOU HAGENSCHNEIDER ASHWINI, Unavailable Unavailable HAGENSCHNEIDER ASHWINI MIRELLA BRUCE, MIRELLA Unavailable Unavailable BRUCE [facility] Unavailable Unavailable [facility], [facility] Un[facility] Unavailable INC, [facility] AL ERA, AL Unavailable Unavailable ERA REA ALENA, Unavailable Unavailable RE[facility] Unavailable Unavailable [facility], [facility] CALZADA MERLY, CALZADA MERLY Unavailable Unavailable CALZADA MERLY, CALZADA MERLY Unavailable Unavailable NAVYA CALZADA, Unavailable Unavailable NAVYA CALZADA [facility], Unavailable Unavailable [facility], Unavailable Unavailable [facility], [facility] KRUSLING EDW, Unavailable Unavailable KRUSLING EDW KUMLER III MARY JO, Unavailable Unavailable KUMLER III MARY JO [facility] Unavailable Unavailable [facility], [facility] Unavailable Unavailable [facility], [facility] & Unavailable Unavailable [facility] Un[facility], [facility] Un[facility] Unavailable [facility], [facility] Unavailable [facility]available [facility], [facility] BRYANT, MARCELO, BRYANT, MARCELO Unavailable Unavailable [facility], Unavailable Unavailable [facility] Unavailable Unavailable SERVICES, [facility] GRACE BUNCH, Unavailable Unavailable GRACE BUNCH [facility] Unavailable Unavailable ASSOCIAT, [facility], Unavailable Unavailable [facility] [...] JARRELL, O'MANDY Unavailable Unavailable JARRELL [facility], [facility], [facility] Unavailable Unavailable LABS, LLC [facility], [...] [facility] Unavailable Unavailable OF [facility], [facility], Unavailable Unavailable [facility] sambaash Unavailable Unavailable [facility], [facility] Unavailable Unavailable [facility], [facility] JA GRE, JA Unavailable Unavailable GRE TRACY JAM, TRACY Unavailable Unavailable JAM SCHNITZLER MONICO, Unavailable Unavailable SCHNITZLER MONICO SCHNITZLER MONICO, Unavailable Unavailable SCHNITZLER MONICO SCIFRES, SCIFRES Unavailable Unavailable SCIFRES, SCIFRES Unavailable Unavailable [facility] Unavailable Unavailable [facility], [facility] Unavailable Unavailable EM[facility]GENC[facility], [facility] Unavailable Unavailable [facility] Unavailable Unavailable GARMENT PATTERNMAKER [facility] Unavailable Unavailable [facility] STAPLES KER, STAPLES KER Unavailable Unavailable MELVIN BALJIT, MELVIN Unavailable Unavailable BALJIT [facility] Unavailable Unavailable GASTROENTEROLOGY A, [facility] # Unavailable Unavailable [id number], [facility] # [id number] [id number], Unavailable Unavailable [facility] # [id number] [facility] # Unavailable Unavailable [phone], [id number] # [id number] [facility], Unavailable Unavailable [facility] Unavailable Unavailable OF [place], [facility] [place] Perry, SEVERIANO Perry Unavailable Unavailable NICKOLAS LARA, Unavailable Unavailable NICKOLAS LARA ANTHONY, Unavailable Unavailable MARIELENA QUINTEROS Purpose Continuity of Care Document - 03-13-2009 through 2016 Problems Code Diagnosis DOS Provider Status [id number] HORDEOLUM 04-16-2017 SCIFRES EXTERNUM RIGHT LOWER EYELID K529 NONINFECTIV 02-28-2017 [facility] ITIS & COLITIS UNS K029 DENTAL 08-23-2016 [facility] UNSPECIFIED INC K044 ACUTE 08-23-2016 [facility], PERIODONTIT PLLC IS OF PULPAL ORIGIN K0500 ACUTE 08-23-2016 [facility] PLAQUE INC INDUCED Z720 TOBACCO USE 08-23-2016 [facility] R102 PELVIC AND 06-05-2016 [facility] PAIN GROUP K5090 CROHNS 06-04-2016 [facility] DISEASE UNS GASTROENTER WITHOUT OLOGY A COMPLICATIO NS H11481 CROHNS 06-04-2016 ST DISEASE UNS [facility] GARMENT PATTERNMAKER W/UNSPECIFI ST ED COMPLICATIO NS R197 DIARRHEA 06-04-2016 [facility] UNSPECIFIED GASTROENTER OLOGY A R634 ABNORMAL 06-04-2016 [facility] OLOGY A D46487 REGULAR 06-03-2016 [facility] MERLY ASTIGMATISM BILATERAL K5289 OTH SPEC 05-18-2016 [facility] NONINFECTIV GASTROENTER E OLOGY A GASTROENTER ITIS & COLITIS R1084 GENERALIZED 05-18-2016 ANESTHESIA ABDOMINAL GROUP PAIN PRACTICE Z008 ENCOUNTER 05-18-2016 [facility] FOR OTHER ASSOCIATES GENERAL OF [facility] EXAMINATION R1030 LOWER 05-17-2016 [facility] ABDOMINAL GASTROENTER PAIN OLOGY A UNSPECIFIED R12 HEARTBURN 05-17-2016 [facility] GASTROENTER OLOGY A N771 VAGINITIS 05-14-2016 [facility] VULVIT & N EMERGENCY VULVOVAGINI PHYSI T IN DZ CLASS ELSW R1031 RIGHT LOWER [facility]-14[facility] R109 UNSPECIFIED 05-14-[facility] A[facility] PAIN ASSOCIAT R112 NAUSEA WITH 05-14-2016 [facility] UNSPECIFIED ASSOCIAT V622KVH COMP 05-14-2016 [facility] SURGICAL & N EMERGENCY MEDICAL PHYSI CARE UNS INITIAL ENCNTR L0291 CUTANEOUS 08-06-2015 [facility] ABSCESS [facility] UNSPECIFIED HOLDINGS Z13769 ENCOUNTER 07-30-2015 [facility], REGIONAL GUIDE EXAM LLC GENERAL RTN W/O ABNORMAL FIND 52827 GENERALIZED 03-20-2015 [facility] ANXIETY PR[facility]ORDER [facility] V790 SCREENING 03-20-2015 [facility] FOR PRIMARY DEPRESSION CARE CENTER 56946 CLOS 03-19-2015 [facility] FRACTURE H ORTHOPAE MID/PROXIMA L PHALANX/PHA LANG HAND 7295 PAIN IN 03-08-2015 [facility] SOFT N EMERGENCY TISSUES OF PHYS LIMB 13021 PAIN IN 02-22-2015 [facility] JOINT, HAND H ORTHOPAE V4589 OTHER 02-22-2015 ST POSTSURGICA NICK L STATUS MED CTR GARMENT PATTERNMAKER OTHER ST V571 OTHER 02-22-2015 ST PHYSICAL NICK THERAPY MED CTR GARMENT PATTERNMAKER ST 6929 CONTACT 02-13-2015 [facility] DERMATITIS& PRIMARY OTHER CARE CENTER ECZEMA DUE UNSPEC CAUSE V851 BODY MASS 02-13-2015 [facility] INDEX PRIMARY BETWEEN [facility] CENTER 19-24 ADULT 26738 PAIN IN 02-11-2015 RADIOLOGY JOINT, ASSOCIATES ANKLE AND OF [facility] FOOT 39573 CLOSED 02-11-2015 [facility] FRACTURE EMERGENCY UNSPEC PHYSICIANS PHALANX/PHA LANGES HAND 88421 UNSPECIFIED 02-11-2015 [facility] SITE OF EMERGENCY ANKLE PHYSICIANS SPRAIN AND STRAIN 9599 INJURY 02-11-2015 RADIOLOGY OTHER AND ASSOCIATES UNSPECIFIED OF [facility] UNSPECIFIED SITE 91812 LUMP OR 10-09-2014 [facility] MASS IN PHYSICIANS [place] GROUP 60357 OTHER 10-09-2014 [facility] SPECIFIED [facility] DISORDERS INC OF [place] 62054 OTHER 10-09-2014 [facility] RADIOLOGICA L EXAM [place] 84297 REGULAR 03-21-2014 [facility] MERLY ASTIGMATISM 6201 CORPUS 03-16-2014 [facility] LUTEUM CYST OR HEMATOMA 6259 UNSPEC 03-16-2014 [facility] SYMPTOM ASSOC W/FEMALE GENITAL ORGANS 24501 ABDOMINAL 03-16-2014 [facility] PAIN, LEFT LOWER QUADRANT 6202 OTHER AND 03-12-2014 [place] UNSPECIFIED [facility]ICAL OVARIAN [facility] ASS CYST 7242 LUMBAGO 03-12-2014 [facility] MOH 7245 UNSPECIFIED 03-12-2014 [facility] 7880 RENAL COLIC 03-12-2014 [facility] 66715 HEAD 03-12-2014 [place] INJURY, MEDICAL UNSPECIFIED IMAGING ASS 4618 OTHER ACUTE 08-08-2013 [facility] ARTEAG[facility] SINUSITIS 7840 HEADACHE 08-08-2013 [facility] 2359 NEOPLASM 07-18-2013 [facility] UNCERTAIN SURGERY BEHAVIOR ASSOC OTH&UNSPEC RESP ORGN 4710 POLYP OF 07-18-2013 [facility] NASAL SURGERY CAVITY ASSOC 4719 UNSPECIFIED 07-18-2013 SCHNITZLER NASAL MONICO POLYP 7291 UNSPECIFIED 07-11-2013 [facility] MYALGIA SURGERY AND ASSOC MYOSITIS 4739 UNSPECIFIED 07-04-2013 SINUSITIS [facility] 24798 LOSS OF 06-28-2013 [facility] 89778 HORDEOLUM 06-23-2013 CALZADA MERLY EXTERNUM 5990 URINARY 06-16-2013 [facility] TRACT INFECTION SITE NOT SPECIFIED 91126 HEMATURIA 06-16-2013 [facility] UNSPECIFIED 1330 SCABIES 04-24-2013 FULLER JUNG 6989 UNSPECIFIED 04-24-2013 FULL[facility] JUNG PRURITIC DISORDER 27722 EFFUSION OF 01-11-2013 [facility] PROST[facility] FOOT JOINT & ORTHO 22303 OTHER ANKLE 01-11-2013 [facility]OST[facility] STRAIN & ORTHO 90559 CLOSED 01-06-2013 SHELBY ARTEAGA FRACTURE OF UNSPECIFIED [...] V3000 SINGLE 10-11-2010 A C SEVERIANO [facility] W/O 650 NORMAL 10-10-2010 [facility] DELIV[facility] [place] 33947 OLIGOHYDRAM 10-10-2010 WOMEN'S NIOS, HEALTH DELIVERED CLINIC OF [place] 94753 OTH&UNS CRD 10-10-2010 [facility] OF COMP L&D [place] DELIV V270 OUTCOME OF 10-10-2010 WOMEN'S DELIVERY HEALTH SINGLE CLINIC OF LIVEBORN [place] 47017 OLIGOHYDRAM 10-09-2010 [facility] ANTEPARTUM CLIN[facility] OF [place] V221 SUPERVISION 10-02-2010 WOMEN'S OF OTHER HEALTH NORMAL CLINIC OF [place] 69843 MATERNAL RX 2010 WOMEN'S DEPEND HEALTH COMPL PG CLINIC OF CB/PP UNS [place] EOC 6110 INFLAMMATOR 08-04-2010 COMBINED [place] [address] PLACENTA 07-23-2010 WOMEN'S PREVIA HEALTH WITHOUT CLINIC OF HEMORRHAGE [place] ANTEPARTUM 45620 POOR 07-23-2010 WOMEN'S GROWTH MGMT HEALTH MOTH CLINIC OF ANTPRTM [place] COND/COMP V653 DIETARY 06-19-2010 [facility]ILL[facility] HEALTH E AND DEPARTME COUNSELING V6540 COUNSELING 06-19-2010 [facility] N[facility] HEALTH DEPARTME V283 ENCOUNTER 06-05-2010 WOMEN'S ROUTINE HEALTH SCREEN CLINIC OF MALFORMATIO [place] N ULTRASONIC V7242 03-26-2010 [facility] OR TEST S POSITIVE RESULT 85303 OTHER 03-24-2010 WOMEN'S SPECIFED HEALTH COMPLICATIO CLINIC OF N NADINE ANTEPARTUM PLLC 75415 PAP SMER 03-21-2010 PATHOLOGY & CERV CYTOLOGY W/ATYPICAL LAB SQUAMOUS CELLS UNDET 77411 CERV HIGH 03-21-2010 PATHOLOGY & RISK HUMAN CYTOLOGY PAPILLOMAVI LAB LEATHA DNA TEST POS V745 SCREENING 03-21-2010 PATHOLOGY & EXAMINATION CYTOLOGY FOR LAB VENEREAL DISEASE 82842 OTHER 03-06-2010 ST POSTOPERATI NICK VE FT MARCI INFECTION NEC V6709 FOLLOW-UP 03-06-2010 ST EXAMINATION NICK FOLLOWING FT MARCI OTHER SURGERY 29800 MASTODYNIA 01-15-2010 [facility] 6100 SOLITARY 10-03-2009 [facility] OF RADIOLOGY [place] ASSOCIAT 42976 OTHER SIGN 10-03-2009 [facility] CO AND SYMPTOM [...] PH ZA 61 17 17 84 AR ME 5 05 MA IN CY E 10 [...] 1 09 PH CE AR TA MA WI CY NO PH #1 EN 56 9 5- 32 5 HY 53 12 01 [address] 74 -2 -2 .0 00 S ti OC 60 5- 7- 00 01 PH ve OD 10 20 20 27 AR ON 90 16 17 93 MA -A 1 76 CY CE TA #0 WI 23 NO 32 PH EN 5- 32 5 WI 00 12 01 20 10 00 CV [...] 20 3- 9- 00 RE 44 ve ME 05 [address] AM [...] 20 3- 3- 00 RE 44 ve ME 05 [address] AM [...] 1 60 30 CL 23 CL Ac ME 74 -2 -2 .0 IN 52 AR [...] 10 10 DE TA 1 PH RE WI AR K N- MA J CA CY FF 50 -3 25 -4 0 BU 00 09 09 40 10 RE 68 HASSAN Ac TA 14 -0 -0 .0 YN 53 RP ti LB 31 9- 9- 00 OL 39 EL ve -A 78 20 20 DS CE 70 10 10 GE TA 1 PH RA WI AR LD N- MA R CA CY FF 50 -3 25 -4 0 ME 65 08 08 30 30 RE 68 [...] 10 10 DE TA 1 PH RE WI AR K N- MA J CA CY [...] 5 PH EN AR E MA CY ME 37 02 02 00 56 28 RE [...] 5 PH EN AR E MA CY ME 37 01 01 00 14 14 WA 29 HE Ac IL 00 -1 -2 .0 LG 56 RF ti OS 00 RE 40 EL ve EC 45 20 20 EN 5 50 10 10 # RO OT 2 B C 07 F 20 34 .6 6 MG TA BL ET ME 00 01 01 00 10 2 WA 29 HE Ac OM 78 -1 -2 .0 LG 56 RF ti ET 11 RE 40 EL ve HASSAN 83 20 20 EN 6 ZI 00 10 10 # RO NE 1 B 07 F 25 34 6 MG TA BL ET Procedures Procedure DOS Code Location Performer Comment COLLECTIO [address] N VENOUS 6 NCIK NICK BLOOD MED CTR MED CTR VENIPUNCT GARMENT PATTERNMAKER ST GARMENT PATTERNMAKER ST URE COMPREHEN [address] SIVE 6 NICK NICK METABOLIC MED CTR MED CTR PANEL GARMENT PATTERNMAKER ST GARMENT PATTERNMAKER ST [address] HYDROXY 6 NICK NICK INCLUDES MED CTR MED CTR FRACTIONS GARMENT PATTERNMAKER ST GARMENT PATTERNMAKER ST IF PERFORMED BLOOD [address] COUNT 6 NICK NICK COMPLETE MED CTR MED CTR AUTO&AUTO GARMENT PATTERNMAKER ST GARMENT PATTERNMAKER ST DIFRNTL WBC HEPATITIS [address] B CORE 6 NICK NICK ANTIBODY MED CTR MED CTR HBCAB GARMENT PATTERNMAKER ST GARMENT PATTERNMAKER ST TOTAL OPHTH 75929 [facility] 6 XM&EVAL COMPRHNSV ESTAB PT 1/> HOSPITAL [address] [facility] DISCHARGE 6 NICK EDW DAY MANAGEMEN PHYSICIAN T 30 S MIN/< COLONOSCO 96667 [facility] PY 6 GRE W/BIOPSY GASTROENT SINGLE/MU EROLOGY A LTIPLE ANES 17030 ANESTHESI WICKELHAU LOWER 6 A GROUP S INTESTINE PRACTICE ENDOSCOPY DISTAL DUODENUM RADIOLOGI 88257 RADIOLOGY [facility] C EXAM 6 JAM CHEST 2 ASSOCIATE VIEWS S OF NOTH FRONTAL&L ATERAL SBSQ 02514 [facility] 6 ALENA CARE/DAY GASTROENT 25 EROLOGY A MINUTES SBSQ 15933 [facility] 6 [facility] CARE/DAY 25 PHYSICIAN MINUTES S INITIAL 36273 [facility] INPATIENT 6 ALENA CONSULT GASTROENT NEW/ESTAB EROLOGY A PT 80 MIN INITIAL 40177 [facility] 6 [facility] CARE/DAY 50 PHYSICIAN MINUTES S FINAL G9551 [facility] REPR ABD 6 ERA IMAG STS RADIOLOGY W/O ASSOCIAT INCIDNT FND LES NTD: FINAL G9637 [facility] REPORTS 6 ERA W/DOC RADIOLOGY 1/MORE ASSOCIAT DOSE REDUCTION TECH RADEX ABD 63627 [facility] COMPL 6 ERA AQT ABD RADIOLOGY W/S/E/D ASSOCIAT VIEWS [address] [place] [address] [facility] ABDOMEN & 6 ERA PELVIS RADIOLOGY W/CONTRAS ASSOCIAT T MATERIAL CULTURE 00295 [facility] BACTERIAL 5 NICKOLAS NICKOLAS ANY HOLDINGS HOLDINGS SOURCE ANAEROBIC ISO&ID CUL BACT 63226 [facility] ANAEROBIC 5 NICKOLAS NICKOLAS ADDL HOLDINGS HOLDINGS METHS DEFINITIV E EA ISOL CYTP C/V 96742 [facility], PICKLESIM AUTO THIN 5 LLC ER JR KURT LYR PREPJ SCR MNL RESCR PHYS RADEX 84397 [facility] DUE THO FINGR 5 LTH MINIMUM 2 ORTHOPAE VIEWS RADEX 13510 [facility] HAGENSCHN HAND 5 EIDER ASHWINI MINIMUM 3 RADIOLOGY VIEWS ASSOCIAT RADEX 15625 [facility] DUE THO FINGR 5 LTH MINIMUM 2 ORTHOPAE VIEWS RADEX 69812 [facility] HOBLITZEL FINGR 5 LTH ERA MINIMUM 2 ORTHOPAE VIEWS FINGER L39[address] ST ST ORTHOTIC 5 NICK NICK W/O MED CTR MED CTR JOINTS GARMENT PATTERNMAKER ST GARMENT PATTERNMAKER ST CUSTOM FABRICATE D RADEX 43868 [facility] DUE THO FINGR 5 LTH MINIMUM 2 ORTHOPAE VIEWS PRQ SKEL [address] FIXJ 5 NICK ROMERO PHLNGL MED CTR MED CTR SHFT FX GARMENT PATTERNMAKER ST GARMENT PATTERNMAKER ST PROX/MIDD LE PX/F/T INJ J0702 [facility] CO GORE DEN BETAMETHA 5 PRIMARY SONE CARE ACETATE & CENTER PHOSPHATE 3 MG THERAPEUT 58400 [facility] GORE DEN IC 5 PRIMARY PROPHYLAC CARE TIC/DX CENTER INJECTION SUBQ/IM RADEX 89979 [facility] GREFER FINGR 5 LTH SEKOU MINIMUM 2 ORTHOPAE VIEWS RADEX 76309 [facility] GABRIEL FINGR 5 FRANCO MINIMUM 2 ASSOCIATE VIEWS S OF NOTH RADEX 30382 RADIOLOGY GABRIEL ANKLE 5 FRANCO COMPLETE ASSOCIATE MINIMUM 3 S OF NOTH VIEWS US BREAST 90719 [facility] UNI REAL 5 MEDICAL ALBERTO TIME IMAGING WITH ASS IMAGE COMPLETE OPHTH 43575 [facility] MEDICAL 4 XM&EVAL COMPRHNSV ESTAB PT 1/> [place] [address] ARINA SANTA TRANSVAGI [address] [place] [address] [facility] ABDOMEN & 4 MEDICAL ALBERTO PELVIS IMAGING W/O ASS CONTRAST MATERIAL RADEX 92447 [facility] SPINE 4 MEDICAL MEDICAL LUMBOSACR IMAGING IMAGING AL [place] [address] [place] [address] [facility] HEAD/BRAI 4 MEDICAL ALBERTO N W/O IMAGING CONTRAST ASS MATERIAL NASAL/SIN 67890 HEAD & DOMET SEKOU US NDSC 3 NECK SURG W/BX SURGERY ASSOC POLYPECT/ DBRDMT SPX ANESTHESI 96022 [facility] MUNIZ A NOSE & 3 R MONICO R [place] [address] EDWARDS EDWARDS SURG 3 ALIVIA ALIVIA PATHOLOGY GROSS&SEKOU ROSCOPIC EXAM LOCM Q9967 ST ST 300-399 3 NICK ROMERO MG/ML FT FT IODINE MARCI [place] [address] LINETTE LINETTE MAXILLOFA 3 AVELINA AVELINA CIAL W/O & W/CONTRAS T MATERIAL BASIC 39720 [facility] METABOLIC 3 DIAGNOSTI DIAGNOSTI [place] [address] [facility] THYROID 3 DIAGNOSTI DIAGNOSTI STIMULATI CS CS NG HORMONE TSH BLOOD 47177 [facility] COUNT 3 DIAGNOSTI DIAGNOSTI COMPLETE CS CS AUTO&AUTO DIFRNTL WBC URNLS DIP 90901 ARINA SANTA 3 [facility] GEOFF[facility]Y STICK/TAB LET RGNT NON-AUTO W/O MICRSCP INJECTION J1040 NEUS AVELINA NEUS AVELINA 3 METHYLPRE DNISOLONE ACETATE 80 MG THERAPEUT 87714 NEUS AVELINA NEUS AVELINA IC 3 PROPHYLAC TIC/DX INJECTION SUBQ/IM ANKLE L4350 NATIONAL NATIONAL CONTROL 3 PROSTHETI PROSTHETI ORTHOSIS CS & CS & STIRRUP ORTHO ORTHO STYL RIGID PREFAB CRTCHS E0114 [facility] UNDARM 3 OTH THAN WOOD PAIR PAD TIP&HNDGR IP RADEX 28240 [facility] ANKLE 3 [facility] COMPLETE INC INC MINIMUM 3 VIEWS CLTX DSTL 86725 GUZMAN O'MANDY FIBULAR 3 EMERGENCY JARRELL FX LAT SERVICES MALLS W/O MANJ URNLS DIP 03236 ARINA SANTA 2 GEOFFREY GEOFFREY STICK/TAB LET RGNT NON-AUTO W/O MICRSCP NONEMERG A0120 LKLP [facility] TRNSPRT: 1 [facility] ACT AREA/OT SYS OPHTH 60007 TEX [facility]USH[facility]ES [facility] 1 VISION XM&EVAL COMPRHNSV ESTAB PT 1/> NONEMERG A0120 LKLP BRYANT TRNSPRT: 1 [facility] OMVISUALPLANTITY MAN AREA/OT SYS NONEMERG A0120 LKLP [facility] TRNSPRT: 1 [facility] NONEMERG A0120 [facility] TRNS[facility]T: 1 [facility] OMMUN[place] MTN AREA/[place] [address] [facility] INFUSION 1 [facility] THERAPY INC INC PROPHYLAX IS/[place] [address] CHIPPS GUZMAN SURG 1 JOSE & JUAN DAVID PATHOLOGY DUBILIER GROSS&SEKOU ROSCOPIC EXAM THERAPEUT 96940 [facility] IC 1 [facility] INJECTION INC INC IV PUSH EACH NEW DRUG ENDOMETRI 6823 [facility] BRAMBILA AL 1 [facility]OSP ABLATION INC INC HYSTEROSC 6812 [facility] OPY 1 [facility] INC INC HYSTEROSC 91313 [facility] OPY 1 [facility] ENDOMETRI CLINIC OF AL [place] ABLATION ANES 23214 [facility] HYSTEROSC 1 ANESTH BRUCE OPY&/HYST OF THE EROSALPIN BLUE GOGRAPHY W/BX GONADOTRO 55433 [facility] PIN 1 [facility]OS[facility] CHORIONIC INC INC QUALITATI VE BLOOD 40840 [facility] COUNT 1 [facility] COMPLETE INC INC AUTO&AUTO DIFRNTL WBC NONEMERG A0120 LKLP [facility] TRNSPRT: 1 [facility] OMMUNITY MTN AREA/OTH SYS NONEMERG A0120 LKLP [facility] TRNSPRT: 1 [facility] OMMUNITY MTN AREA/OTH SYS NONEMERG A0120 LKLP [facility] TRNSPRT: 1 [facility] OMMUNITY MTN AREA/OTH SYS NONEMERG A0120 LKLP [facility] TRNSPRT: 1 [facility] OMMUNITY MTN AREA/OTH SYS NONEMERG A0120 LKLP [facility] TRNSPRT: 1 [facility] OMMUNITY MTN AREA/OTH SYS NONEMERG A0120 LKLP [facility] TRNSPRT: 1 [facility] OMMUNITY MTN AREA/OTH SYS NONEMERG A0120 LKLP [facility] TRNSPRT: 1 [facility] OMMUNITY [facility] AREA/OT SYS CYTP C/V 22348 PATHOLOGY PATHOLOGY AUTO THIN 1 & & LYR CYTOLOGY CYTOLOGY PREPJ SCR LAB LAB MNL RESCR PHYS NONEMERG A0120 [facility] TRNSPRT: 1 [facility] SYS NONEMERG A0120 [facility] TRNSPRT[facility] 1 [facility] ARE[facility]/OT SYS NONEMERG A0120 [facility] TRNSPRT: 1 [facility] [address] Orlando Perry DISCHARGE 1 SEVERIANO FERERLL DAY PSC MANAGEMEN T 30 MIN/< 1ST 31839 Orlando Perry HOSP/HUNG 1 SEVERIANO FERRELL [facility] PSC CENTER CARE PER DAY NML NB [facility] 6639 [facility] BILATERAL 1 [facility] INC INC DESTRUC/O CCLUSION [place] TUBES ANES IPER 96087 [facility] LEYVA GERTRUDE LWR ABD 1 ANESTH W/LAPS OF THE TUBAL BLUE LIGATION/ TRANSECT LIG/TRNSX 73398 [facility] J FLP [facility] ABDL/VAG DENISE POSTPARTU M SPX VAGINAL 61431 [facility] DELIVERY [facility] DENISE NEURAXIAL 66738 [facility] MELVIN LABOR 1 ANESTH BALJIT ANALG/ANE OF THE S PLND BLUE VAGINAL DELIVERY OTHER 7359 PATTY BRAMBILA MANUALLY 1 [facility] ASSISTED INC [place]ERY [place] PREG 12219 [facility] UTERUS [facility] REAL TIME CLINIC OF F/U DENISE TRNSABDL PER FETUS 83370 [facility] BIOPHYSIC 1 [facility] PROFILE DENISE W/O NON-STRES S TESTING DOPPLER 31051 [facility] VELOCIMET 1 [facility] R[facility] UMBILICAL [facility]ISE ARTERY NONEMERG A0120 [facility] TRNSPRT: 1 [facility] MTN AREA/OTH SYS CUL BACT 16874 COMBINED COMBINED XCPT 1 PHYSICIAN PHYSICIAN URINE S LA S LA BLOOD/STO OL AEROBIC ISOL NONEMERG A0120 [facility] MTN AREA/OTH SYS NONEMERG A0120 [facility]MMUN[facility] MTN AREA/OTH SYS NONEMERG A0120 [facility]: [facility]UN[facility] MTN AREA/OTH SYS CUL BACT 76895 COMBINED COMBINED XCPT 0 PHYSICIAN PHYSICIAN URINE S LA S LA BLOOD/STO OL AEROBIC ISOL NONEMERG A0120 [facility] MTN AREA/OTH SYS 86126 [facility] BIOPHYSIC [facility] PROFILE DENISE W/O NON-STRES S TESTING DOPPLER 81421 [facility] VELOCIMET 0 [facility] UMBILICAL [place] ARTERY US PREG 98921 [facility] UTERUS 0 [facility] REAL TIME CLINIC OF F/U DENISE TRNSABDL PER FETUS NONEMERG A0120 [facility] TRNSPRT: 0 [facility] MTN AREA/OTH SYS NONEMERG A0120 [facility] TRNSPRT: 0 [facility] MTN AREA/OTH SYS MEDICAL 00961 [facility] BRANDON NUTRITION 0 [facility]&IVN DEPARTME DEPARTME TJ INDIV EACH [address] [place] [address] [facility]: [facility]UN[facility] MTN AREA/OTH SYS NONEMERG A0120 [facility] TRNSPRT: 0 [facility]MMUN[facility] MTN AREA/OTH SYS US PREG 86627 [facility] UTERUS [facility] AFTER [facility] TRIMEST [facility] GESTATION NONEMERG A0120 [facility] TRNSPRT: 0 [facility]UN[facility] MTN AREA/OTH SYS NONEMERG A0120 [facility] TRNSPRT: 0 [facility] MTN AREA/OTH SYS NONEMERG A0120 [facility] TRNSPRT: [facility] MTN AREA/OTH SYS NONEMERG A0120 LK[facility] TRNSPRT: [facility] MTN AREA/OTH SYS NONEMERG A0120 LK[facility] TRNSPRT: 0 [facility] MTN AREA/[place] [id number] MEDTOX MEDTOX LEAD 0 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 IES IES US PREG 31791 [facility] UTERUS 0 [facility] J REAL TIME [facility]IN[facility] OF W/IMAGE DCMTN [place] [employer] MUTATION 46641 MOLECULAR MOLECULAR ID 0 ENZYMATIC PATHOLOGY PATHOLOGY LAB NETW LAB NETW LIG/PRIME R XTN 1 SGM EA CYTP 76641 PATHOLOGY PATHOLOGY CERVICAL/ 0 & & VAGINAL CYTOLOGY CYTOLOGY REQ LAB LAB INTERP PHYSICIAN CYTP C/V 79789 PATHOLOGY PATHOLOGY AUTO THIN 0 & & LYR CYTOLOGY CYTOLOGY PREPJ SCR LAB LAB MNL RESCR PHYS IADNA 23114 PATHOLOGY PATHOLOGY CHLAMYDIA 0 & & CYTOLOGY CYTOLOGY TRACHOMAT LAB LAB IS AMPLIFIED PROBE TQ IADNA 31813 PATHOLOGY PATHOLOGY NEISSERIA 0 & & CYTOLOGY CYTOLOGY GONORRHOE LAB LAB AE AMPLIFIED PROBE TQ IADNA 74996 PATHOLOGY PATHOLOGY PAPILLOMA 0 & & VIRUS CYTOLOGY CYTOLOGY HUMAN LAB LAB AMPLIFIED PROBE TQ NONEMERG A0120 [facility] TRNSPRT: [facility] MTN AREA/OTH SYS NONEMERG A0120 LK[facility] TRNSPRT: 0 [facility] MTN AREA/OTH SYS NONEMERG A0120 [facility] BRYANT TRNSPRT: 0 [facility] MTN AREA/OTH SYS NONEMERG A0120 [facility] TRNSPRT: [facility] MTN AREA/OTH SYS NONEMERG A0120 [facility]: [facility] MTN AREA/[place] [address] [facility] 0 NICK PATHOLOGY MED CTR GROSS&SEKOU ROSCOPIC EXAM MASTOTOMY 39281 [facility], 0 NICK Pereira W/EXPLORA TION/AI PHYSICIAN ELISA Marroquin ABSCESS DEEP EXCISION 99619 [facility], LACTIFERO 0 NICK Pereira US DUCT FISTULA PHYSICIAN Lopez ANES 23215 INDEPENDE GAGAN INTEG 0 NT N, EXTREMITI ANESTHESI MARIELENA ES ANT OLOGIST TRUNK & PERINEUM NOS COLLECTIO 74027 [facility] YOUNG, N VENOUS 0 PRIMARY [facility] BLOOD CARE VENIPUNCT [facility] US BREAST 18871 [employer] REAL 0 EIDER ASHWINI TIME RADIOLOGY W/IMAGE ASSOCIAT DOCUMENTA TION CYTP 86560 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 SLCTV 0 Y & Y & CELL BIODIAGNO BIODIAGNO ENHANCEME STICS STICS NT INTERPJ XCPT C/[place] [address] 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 PROLACTIN 0 Y & Y & BIODIAGNO BIODIAGNO STICS STICS CYTP 26378 PATHOLOGY PATHOLOGY CERV/VAG 0 & & AUTO THIN CYTOLOGY CYTOLOGY LAYER LAB LAB PREP MNL SCREEN OPH 59689 CARMEN LINDQUIST 9 VISION NAVYA A XM&EVAL COMPRE NEW PT 1/> VST Encounters Encounter Start End Date Code Location Performer Type Date OFFICE 57259 [facility] OUTPATIEN 7 7 T VISIT 10 MINUTES OFFICE 39816 [facility] 7 7 [facility] T V[facility]IT 5 INC [facility] - 7 7 [facility] - 6 6 [facility] OUTPATIEN INC T EMERGENCY 74722 [facility] 6 6 [facility] DEPARTMEN INC T VISIT LIMITED/M INOR PROB EMERGENCY 68697 BRYANT RAMIREZ 6 6 PHYSICIAN DEPARTMEN S, PLLC T VISIT MODERATE SEVERITY OFFICE 78105 [facility] OUTPATIEN 6 6 PHYSICIAN T VISIT S GROUP 15 MINUTES OFFICE 46709 [facility] OUTPATIEN 6 6 ALENA T VISIT GASTROENT 25 [facility]Y [facility] 6 6 NICK OUTPAT[facility]EN MED CTR T [facility] EMERGENCY 17747 [facility] DILIP DEPT 6 6 EMERGENCY SEKOU VISIT HIGH PHYSICIAN SEVERITY& S THREAT FUNJ EMERGENCY 56134 [facility] DEPT 6 6 JARRELL VISIT EMERGENCY HIGH PHYSI SEVERITY& THREAT [facility] OFFICE 73896 TRACY BRUCEE DEN OUTPATIEN 5 5 PRIMARY T VISIT CARE 25 CENTER MINUTES EMERGENCY 48939 [facility] 5 5 JARRELL DEPARTMEN EMERGENCY T VISIT PHYS MODERATE SEVERITY [facility]PITAL ST - 5 5 NICK OUTPATIEN MED CTR T [facility] ST - 5 5 NICK OUTPATIEN MED CTR T [facility] OFFICE 52148 [facility] D[facility]O OUTPATIEN 5 5 LTH T VISIT ORTHOPAE 15 MINUTES OFFICE 62910 [facility] GORE DEN OUTPATIEN 5 5 PRIMARY T VISIT CARE 15 CENTER MINUTES OFFICE 57399 [facility] GREFER OUTPATIEN 5 5 LTH SEKOU T NEW 30 ORTHOPAE MINUTES EMERGENCY 22766 NANCY ALONSO 5 5 EMERGENCY AND DEPARTMEN T VISIT PHYSICIAN HIGH/URGE S NT SEVERITY [facility]OSPITAL [facility] - 5 5 [facility] OUTPATIEN INC T OFFICE 75648 [facility] ARINA OUTPATIEN 5 5 PHYSICIAN GEOFFREY T VISIT S GROUP 15 MINUTES OFFICE 58106 [facility] OUTPATIEN 4 4 GEOFFREY GEOFFREY T VISIT 25 MINUTES EMERGENCY 04882 ALFARIS ALFARIS DEPT 4 4 [facility] VISIT HIGH SEVERITY& THREAT FUNCJ OFFICE 40219 SHELBY RYAN OUTPATIEN 3 3 JAM JAM T VISIT 25 MINUTES OFFICE 78337 [facility] & DOMET SEKOU OUTPATIEN 3 3 NECK T VISIT SURGERY [address] - 3 3 NICK OUTPATIEN FT T MARCI OFFICE 48738 SHELBY RYAN OUTPATIEN 3 3 JAM JAM T VISIT 15 MINUTES OFFICE 79880 HEAD & DOMET SEKOU CONSULTAT 3 3 NECK ION SURGERY NEW/ESTAB ASSOC PATIENT 60 MIN OFFICE 19350 ELSI MORELAND OUTPATIEN 3 3 T VISIT 10 MINUTES OFFICE 85614 ARINA SANTA OUTPATIEN 3 3 GEOFFREY GEOFFREY T VISIT 15 MINUTES OFFICE 87613 FULLER JUNG FULLER JUNG OUTPATIEN 3 3 T VISIT 15 MINUTES OFFICE 34886 NEUS AVELINA OUTPATIEN 3 3 T VISIT 15 MINUTES OFFICE 99653 PETER GREEN OUTPATIEN 3 3 III MARY JO III MARY JO T NEW 30 MINUTES EMERGENCY 83131 GUZMAN LOVE 3 3 EMERGENCY JARRELL DEPARTMEN SERVICES T VISIT HIGH/URGE NT SEVERITY OFFICE 38507 SHELBY RYAN OUTPATIEN 3 3 JAM JAM T VISIT 25 MINUTES HOSPITAL [facility] - 3 3 [facility] OUTPATIEN INC T EMERGENCY 13827 [facility] 3 3 [facility] DEPARTMEN INC T VISIT MODERATE SEVERITY PERIODIC 37781 [facility] PREVENTIV 2 2 GEOFFREY GEOFFREY E MED EST PATIENT 18-39 YRS [facility] PATTY - 1 1 [facility]ATT[facility] - 1 1 [facility] OUTPATIEN INC T OFFICE 55834 [facility] 1 1 HEALTH GE[facility]REY T VISIT CLINIC OF 15 DENISE MINUTES OFFICE 63288 [facility] 1 1 HEALTH [facility]Y T VISIT CLINIC OF 15 DENISE MINUTES [facility]OSPITAL [facility] - 1 1 [facility] INPATIENT INC OFFICE 38678 [facility] 1 1 HEALTH GE[facility]REY T VISIT CLINIC OF 15 DENISE MINUTES OFFICE 95383 [facility] 1 1 HEALTH GE[facility]Y T VISIT CLINIC OF 15 DENISE MINUTES OFFICE 60439 [facility] 0 0 HEALTH GEOFFREY T VISIT CLINIC OF 15 DENISE MINUTES OFFICE 89477 [facility] 0 0 HEALTH GE[facility]REY T VISIT CLINIC OF 15 DENISE MINUTES OFFICE 11736 [facility] 0 0 HEALTH [facility]Y T VISIT [facility]INIC OF [address] - 0 0 NICK OUTPATIEN FT T MARCI OFFICE 99225 ST OUTPATIEN 0 0 NICK T VISIT FT 10 MARCI MINUTES [facility] - 0 0 [facility] T OFFICE 90468 [facility] OUTPATIEN 0 0 HOSPITAL T VISIT [facility] 10 MINUTES EMERGENCY 85352 EMERGENCY SHARIF, 0 0 CARE FABRIZIO [facility] T VISIT [facility] SAULT/URGE [place] NT SEVERITY OFFICE [address] [facility]PATIEN 0 0 NICK Pereira T [facility] 45 MINUTES PHYSICIAN S OFFICE [address]2515 [facility] H[facility] T VISIT [address] [facility] - 0 0 [facility] EMERGENCY 85920 EMERGENCY GAUTRAUD, 0 0 CARE NGUYỄN PAL[place] PHYS T VISIT [facility] HIGH/URGE [place] NT SEVERITY OFFICE 70050 TRACY [facility] 0 0 PRIMARY NICKOLAS T VISIT CARE [address] [place] [address] YOLI - 0 0 [facility]
--- OUTSIDE RECORDS SUMMARY | 2017-06-10 01:38 | External Medical Summary Rpt | CCD ---
Demographics Preferred Language Turkmen Marital Status Unknown Synagogue Affiliation Unknown Race Unknown Ethnic Group Unknown Author Author , JACK SANTIAGO Address Unknown Phone Immunization Unable to retrieve immunization data due to connection failure with Immunization Registry. Please try again later.
--- OUTSIDE RECORDS SUMMARY | 2017-06-10 01:38 | External Medical Summary Rpt ---
Author Author JACK Clemens, [employer] Address Unknown Phone Unavailable
--- OUTSIDE RECORDS SUMMARY | 2017-06-10 01:38 | External Medical Summary Rpt | CCD ---
Demographics Preferred Language Spanish Marital Status Unknown Hindu Affiliation Unknown Race Unknown Ethnic Group Unknown Author Author , JACK SANTIAGO Address Unknown Phone Immunization Unable to retrieve immunization data due to connection failure with Immunization Registry. Please try again later.
== END 2017-05-30 21:13 | disposition home or self-care (01) ==
LOC: UTC 20:47
PROC: 2W3CX1Z Immobilization of Right Lower Arm using Splint (ICD-10-PCS; principal; 2017-05-30)
DX: S69.91XA Unspecified injury of right wrist, hand and finger(s), initial encounter (principal); V00.128A Other non-in-line roller-skating accident, initial encounter; Y92.838 Other recreation area as the place of occurrence of the external cause; F17.210 Nicotine dependence, cigarettes, uncomplicated